=== PATIENT | male | born 1970 | race Caucasian/White ===

== ENCOUNTER → 2017-07-19 13:29 | Outpatient (CLI) | payer OTHER, SELFPAY ==
--- NOTE | 2017-07-19 18:43 | DI.MRI.S_ITS ---
PROCEDURE: MR BRAIN (IAC) WWO CON INDICATIONS: dizziness and h/a TECHNIQUE: Noncontrast sagittal T1 spin echo, axial FLAIR, axial gradient echo, axial diffusion and ADC through the brain. Axial thin-slice 3D CISS, coronal TruFISP, axial T1 spin echo with fat saturation through the internal auditory canals. After the administration of contrast, thin slice axial and coronal T1 spin echo with fat saturation through the internal auditory canals, and axial T1 spin echo with fat saturation through the brain. COMPARISON: None. FINDINGS: Image quality: Excellent. Cerebellopontine angles: No cerebellopontine angle masses. Inner ear structures appear normally formed. No suspicious enhancement in the internal auditory canal or along the course of the 7th cranial nerve. CSF spaces: Ventricles are normal in size and shape. No extra-axial fluid collections. Basal cisterns are patent. Brain: No intracranial bleeds or mass effects. Yanes-white matter interface is intact. No abnormal intracranial enhancement. Diffusion weighted images demonstrate no acute ischemic insults. Brainstem appears normal. Normal intravascular flow voids are present. Skull and face: Calvarial marrow signal is normal. Orbits appear normal. Sinuses: Sinuses and mastoids are clear except for a small degree of mucosal thickening involving the sphenoid sinus and the ethmoid air cells, right greater than left.. IMPRESSION: No sign of mass or hemorrhage, a definite source of headache is not seen. Note is made of a small degree of mucosal thickening involving the sphenoid sinus and ethmoid air cells, right slightly greater than left, but without associated air-fluid level. Mild chronic sinusitis is the presumed cause. Dictated by: Moy Mendieta M.D. on 07/20/2017 at 8:12 Approved by: Moy Mendieta M.D. on 07/20/2017 at 8:14
== END ==
PROVIDERS: Visit Provider Internal Medicine
DX: R42 Dizziness and giddiness (principal); R51 Headache
CPT/HCPCS: 70553; A9579

== ENCOUNTER 2018-12-21 10:10 | Emergency (ER) | payer OTHER, SELFPAY ==
[2018-12-21 10:15] VITALS: BP 144/91; PULSE 91; RESP 18; TEMP 36.6; O2SAT 97
--- NOTE | 2018-12-21 11:06 | ED.ABDPAIN ---
HPI - Abdominal Pain <MARIA TERESA Chaves - Last Filed: 12/21/18 13:27> General Chief Complaint: Abdominal Pain Stated Complaint: left mid abd pain/nausea x2 days Time Seen by Provider: 12/21/18 10:58 Source: patient Mode of arrival: Family Vehicle Limitations: no limitations History of Present Illness HPI narrative: 48-year-old male with a history of IBS, presents emergency department complaining of left lower abdominal pain for the past 2 days. He states he has had this for years and it developed after he eats spicy food, however the pain usually resolves after defecation. Patient states he ate spicy food 2 days ago, and developed the same left lower quadrant pain. He states it is a sharp stabbing 8/10 intermittent pain that is worse with movement and palpation. A noticed at this time it has not resolved after defecation. He reports a bout of diarrhea this morning with a small amount of associated nausea. He states nausea has resolved at this time, and his pain is decreasing. Patient denies fevers but does report chills this morning. He denies chest pain, shortness of breath, dizziness, and vomiting, dysuria, flank pain, history of kidney stones, history of diverticulosis. Patient states he had a colonoscopy 2 years ago and a few polyps were removed. Related Data Home Medications Medication Instructions Recorded Confirmed cetirizine 10 mg tablet 10 mg PO DAILY 08/22/17 12/21/18 Adult Low Dose Aspirin 81 mg PO DAILY 12/21/18 12/21/18 Previous Rx's Medication Instructions Recorded amoxicillin-pot clavulanate 1 tab PO BID 7 Days #14 tab 12/21/18 Allergies Allergy/AdvReac Type Severity Reaction Status Date / Time No Known Allergies Allergy Uncoded 12/21/18 10:38 Review of Systems <MARIA TERESA Chaves - Last Filed: 12/21/18 13:27> Review of Systems Narrative: REVIEW OF SYSTEMS: GENERAL: Denies fever, chills, malaise, or wt. loss. HENT: No head trauma, sore throat, or dysphagia. EYES: No loss of vision, double vision, eye pain, or irritation. CARDIOVASCULAR: No chest pain, palpitations, or orthopnea. RESPIRATORY: No shortness of breath or cough. GASTROINTESTINAL: Complains of left lower quadrant abdominal pain, see HPI GENITOURINARY: No flank pain, urinary incontinence, hesitancy, frequency, or dysuria. MUSCULOSKELETAL: No pain, weakness, or trauma. INTEGUMENTARY: No rash, lesions, or pruritus. NEURO: No numbness, tingling, memory loss, confusion, or headaches. PSYCH: No behavior or mood changes. Patient History <MARIA TERESA Chaves - Last Filed: 12/21/18 13:27> Medical History Ankle pain (Chronic 2017) Anxiety (Chronic 2009) Chicken pox (Resolved ~1969) Chronic back pain (Chronic 2016) Chronic headaches (Chronic 2014) Colon polyps (Resolved 2016) CTS (carpal tunnel syndrome) (Chronic 2016) Diverticular disease (Chronic) Foot pain (Chronic 2014) Fractures (Resolved 1992) GERD (gastroesophageal reflux disease) (Chronic 2016) Hearing loss (Chronic 2016) Hypertension (Chronic 2016) IBS (irritable bowel syndrome) (Chronic 2016) Kidney stones (Resolved) Shoulder pain (Chronic 2011) Sleep apnea (Chronic 2015) Tinnitus (Chronic 2016) Vertigo (Chronic 2016) Surgical History Anesthesia (Resolved) History of hand surgery (Resolved 1998) History of vasectomy (Resolved 1991) Status post adenoidectomy (Resolved 1978) Family History Brother Age: 50 Diabetes mellitus Hypertension Brother Age: 47 Diabetes mellitus Hypertension Father Age: 74 Diabetes mellitus Hypertension Organic cardiac disease High cholesterol Mother Diabetes mellitus Hypertension Sister Age: 51 Diabetes mellitus Hypertension Mental health problem Grandfather Cancer Grandmother Polio Grandfather No problems noted. Grandmother No problems noted. Social History Smoking Status: Never smoker alcohol intake frequency: a few times a week Substance Use Type: does not use Exam <MARIA TERESA Chaves - Last Filed: 12/21/18 13:27> Narrative Exam Narrative: PHYSICAL EXAMINATION: GENERAL: Well groomed, alert, and cooperative. Answers questions promptly and appropriately. Vital signs noted. HENT: Normocephalic, atraumatic. Hearing intact. Oral mucosa is pink and moist. EYES: Conjunctiva pink, sclera white, no periorbital swelling. CARDIOVASCULAR: S1 and S2 sounds normal. Regular rate and rhythm, no murmurs, clicks, or bruits. No pedal edema. RESPIRATORY: Normal respiratory rate, trachea midline, airway patent. No stridor, nasal flaring or accessory muscle use. Lungs are clear in all [place] without wheeze, rhonchi, or crackles. GASTROINTESTINAL: Bowel sounds normoactive. Left lower quadrant tenderness with palpation, no rebound tenderness.. No organomegaly, no palpable masses. GENITALURINARY: No CVA tenderness. MUSCULOSKELETAL: Normal gait and coordination. Equal tone and mass bilaterally. EXTREMITIES: CMS intact, no pedal edema. SKIN: Warm, dry, soft, appropriate color for ethnicity. No lesions, rashes, or wounds. NEURO: Alert and Oriented X 3. Good coordination. No ataxia, or sensory deficits, or cognitive issues. PSYCH: Appropriate affect and mood. Initial Vital Signs Initial Vital Signs: Vital Signs Temperature 97.9 F 12/21/18 10:15 Pulse Rate 91 H 12/21/18 10:15 Respiratory Rate 18 12/21/18 10:15 Blood Pressure 144/91 H 12/21/18 10:15 Pulse Oximetry 97 12/21/18 10:15 <Katherine Robertson DO - Last Filed: 12/21/18 16:01> Initial Vital Signs Initial Vital Signs: Vital Signs Temperature 97.9 F 12/21/18 10:15 Pulse Rate 91 H 12/21/18 10:15 Respiratory Rate 18 12/21/18 10:15 Blood Pressure 144/91 H 12/21/18 10:15 Pulse Oximetry 97 12/21/18 10:15 Course <MARIA TERESA Chaves - Last Filed: 12/21/18 13:27> Course Course Narrative: Patient denied need of pain or nausea medications. Orders Ordered: ED Orders 12/21/18 10:28 EKG-12 Lead Stat 12/21/18 10:58 Complete Blood Count AUTO DIFF Stat Comprehensive Metabolic Panel Stat Lipase Stat Partial Thromboplastin Time Stat Prothrombin Time INR Stat 12/21/18 11:49 CT abdomen pelvis w con Stat Consultations Consultation #1: Patient staffed with Dr. Robertson. Vital Signs Vital signs: Vital Signs - 8 hr 12/21/18 10:15 12/21/18 11:19 12/21/18 12:14 Temperature 97.9 F Pulse Rate 91 H 85 88 Respiratory Rate 18 20 20 Blood Pressure 144/91 H Blood Pressure [Right Arm] 133/84 Pulse Oximetry 97 96 96 12/21/18 12:17 Temperature 97.4 F L Pulse Rate 68 Respiratory Rate 12 Blood Pressure 133/84 Blood Pressure [Right Arm] Pulse Oximetry 99 <Katherine Robertson DO - Last Filed: 12/21/18 16:01> Orders Ordered: ED Orders 12/21/18 10:28 EKG-12 Lead Stat 12/21/18 10:58 Complete Blood Count AUTO DIFF Stat Comprehensive Metabolic Panel Stat Lipase Stat Partial Thromboplastin Time Stat Prothrombin Time INR Stat 12/21/18 11:49 CT abdomen pelvis w con Stat Vital Signs Vital signs: Vital Signs - 8 hr 12/21/18 10:15 12/21/18 11:19 12/21/18 12:14 Temperature 97.9 F Pulse Rate 91 H 85 88 Respiratory Rate 18 20 20 Blood Pressure 144/91 H Blood Pressure [Right Arm] 133/84 Pulse Oximetry 97 96 96 12/21/18 12:17 Temperature 97.4 F L Pulse Rate 68 Respiratory Rate 12 Blood Pressure 133/84 Blood Pressure [Right Arm] Pulse Oximetry 99 MDM - Abdominal Pain <MARIA TERESA Chaves - Last Filed: 12/21/18 13:27> Medical Records Attestation: I reviewed the patient's medical records. Lab Data Attestation: I reviewed the patient's lab results. Result diagrams: 12/21/18 10:58 12/21/18 10:58 Labs: Lab Results 12/21/18 12/21/18 12/21/18 Range/Units 10:58 10:58 10:58 WBC 10.4 (4.5-11.0) X10^3/uL RBC 4.81 (4.5-5.9) X10^6/uL Hgb 15.0 (13.5-17.5) g/dL Hct 42.2 (41-53) % MCV 87.6 (80-100) fL MCH 31.1 (26-34) PG MCHC 35.5 (30-36) % RDW 12.7 (11.6-14.8) % Plt Count 248 (150-400) X10^3/uL Neut % (Auto) 65.1 (50-75) % Lymph % (Auto) 21.5 L (25-40) % [place] % (Auto) 9.5 (3-14) % Eos % (Auto) 3.0 (2-4) % Baso % (Auto) 0.9 (0-2) % Neut # (Auto) 6800 (4440-8024) /uL Lymph # (Auto) 2200 (9910-2632) /uL [place] # (Auto) 1000 H (0-900) /uL Eos # (Auto) 300 (0-450) /uL Baso # (Auto) 100 (0-100) /uL PT 11.8 (10.1-12.7) SECONDS INR 1.0 (0.9-1.3) APTT 31 (26.4-36.2) SECONDS Sodium 138 (137-145) mmol/L Potassium 4.0 (3.4-5.1) mmol/L Chloride 102 (98-107) mmol/L Carbon Dioxide 26 (22-32) mmol/L BUN 11 (9-20) mg/dL Creatinine 0.90 (0.66-1.25) mg/dL Estimated GFR > 60.0 (>60) mL/min BUN/Creatinine Ratio 12.2 (6-22) Glucose 111 H (70-100) mg/dL Calcium 9.6 (8.4-10.2) mg/dL Total Bilirubin 1.1 (0.2-1.3) mg/dL AST 41 (17-59) IU/L ALT 33 (21-72) IU/L Alkaline Phosphatase 66 (38-126) U/L Total Protein 8.0 (6.3-8.2) g/dL Albumin 4.8 (3.5-5.0) g/dL Globulin 3.2 (1.7-4.1) g/dL Albumin/Globulin Ratio 1.5 (1.0-2.8) Lipase 81 (23-300) U/L Point of care testing: Urine Dip Bedside Urine Glucose Negative Bedside Urine Bilirubin - Negative Bedside Urine Ketone - Negative Urine Specific [place] 1.015 Bedside Urine Occult Blood - Negative Bedside Urine pH 6.0 Bedside Urine Protein - Negative Bedside Urine Urobilinogen +/- 1mg Bedside Urine Nitrite - Negative Bedside Urine Leukocytes - Negative Esterase Imaging Data CT scan - abdomen: Radiologist's impression: [address] [address] [address] Scan Report Signed Patient: Joaquín Holland JMR#: [id number] : 1970Acct:[id number] Age/Sex: 48 / MDate of Service: 12/21/18 Loc: ED Accession Number: [id number] Procedure: CT abdomen pelvis w con Ordering Provider: Shilpi Smith PROCEDURE: CT ABDOMEN PELVIS W CON INDICATIONS: left pain x 2 days, chills TECHNIQUE: After the administration of intravenous contrast, 5 mm thick sections acquired from the diaphragm to the symphysis. 5 mm coronal and sagittal reformats were acquired. For radiation dose reduction, the following was used: automated exposure control, adjustment of mA and/or kV according to patient size. COMPARISON: None. FINDINGS: Image quality: Excellent. ABDOMEN: Lung bases: Lung bases are clear. Heart size is normal. A small hiatal hernia is incidentally noted. Solid organs: Liver is normal in size and enhancement. Diffuse fatty liver infiltration is noted. Gallbladder is largely collapsed at the time of this study. Biliary system is non dilated. Pancreas enhances normally. Spleen is normal in size and enhancement. Incidental note is made of an accessory spleen along the anterior aspect of the primary spleen. No adrenal nodules. Kidneys demonstrate normal size and enhancement, without hydronephrosis. Peritoneum and bowel: There is focal wall thickening seen involving the distal descending colon, with surrounding moderate inflammatory change. There is thickening of the adjacent Gerota's fascia. Diverticula formation can be seen within this region. No findings of free air can be seen. No loculated fluid collections are seen to suggest abscess. Moderate diverticulosis is seen involving the sigmoid colon, without diverticulitis. Incidental note is made of a normal-appearing appendix. No other areas of bowel thickening are seen. Nodes and vessels: No retroperitoneal or mesenteric adenopathy by size criteria. Aorta and inferior vena cava are normal in size. Miscellaneous: No ventral hernias. PELVIS: Genitourinary: Bladder wall thickness is normal. Miscellaneous: No inguinal hernias or adenopathy. Bones: No suspicious bony lesions. No vertebral body compression fractures. Mild levoconvex scoliotic curvature is noted. Age-appropriate bony degenerative changes are seen. IMPRESSION: Focal diverticulitis seen involving the distal descending colon. No findings of perforation or abscess can be seen. When clinically appropriate (following adequate treatment of the patient's current clinical episode) a colonoscopy is recommended for further evaluation for a potential underlying mass (if not already recently done). Moderate diverticulosis is seen involving the sigmoid colon, without findings of active diverticulitis. Incidental note is made of: Small hiatal hernia Fatty liver infiltration Accessory spleen Normal appendix Dictated by: Anam Lin M.D. on 12/21/2018 at 10:53 Approved by: Anam Lin M.D. on 12/21/2018 at 10:57 MDM Narrative Medical decision making narrative: History and examination most suspicious for non complicated diverticulitis, this was confirmed by CT imaging confirming focal diverticulitis the distal descending colon. No concern for sepsis or intestinal perforation due to lack of suspicious changes on CT, WBC count within normal limits, and lack of systemic symptoms such as fever. Patient was given Augmentin. He was instructed to follow up with his primary care provider for re-evaluation. Had a conversation with patient about diet changes, he was instructed to avoid spicy foods at least for the next few weeks. Strict return precautions given for worsening symptoms. <Katherine Robertson, DO - Last Filed: 12/21/18 16:01> Lab Data Labs: Lab Results 12/21/18 12/21/18 12/21/18 Range/Units 10:58 10:58 10:58 WBC 10.4 (4.5-11.0) X10^3/uL RBC 4.81 (4.5-5.9) X10^6/uL Hgb 15.0 (13.5-17.5) g/dL Hct 42.2 (41-53) % MCV 87.6 (80-100) fL MCH 31.1 (26-34) PG MCHC 35.5 (30-36) % RDW 12.7 (11.6-14.8) % Plt Count 248 (150-400) X10^3/uL Neut % (Auto) 65.1 (50-75) % Lymph % (Auto) 21.5 L (25-40) % [place] % (Auto) 9.5 (3-14) % Eos % (Auto) 3.0 (2-4) % Baso % (Auto) 0.9 (0-2) % Neut # (Auto) 6800 (7946-5592) /uL Lymph # (Auto) 2200 (3721-8619) /uL [place] # (Auto) 1000 H (0-900) /uL Eos # (Auto) 300 (0-450) /uL Baso # (Auto) 100 (0-100) /uL PT 11.8 (10.1-12.7) SECONDS INR 1.0 (0.9-1.3) APTT 31 (26.4-36.2) SECONDS Sodium 138 (137-145) mmol/L Potassium 4.0 (3.4-5.1) mmol/L Chloride 102 (98-107) mmol/L Carbon Dioxide 26 (22-32) mmol/L BUN 11 (9-20) mg/dL Creatinine 0.90 (0.66-1.25) mg/dL Estimated GFR > 60.0 (>60) mL/min BUN/Creatinine Ratio 12.2 (6-22) Glucose 111 H (70-100) mg/dL Calcium 9.6 (8.4-10.2) mg/dL Total Bilirubin 1.1 (0.2-1.3) mg/dL AST 41 (17-59) IU/L ALT 33 (21-72) IU/L Alkaline Phosphatase 66 (38-126) U/L Total Protein 8.0 (6.3-8.2) g/dL Albumin 4.8 (3.5-5.0) g/dL Globulin 3.2 (1.7-4.1) g/dL Albumin/Globulin Ratio 1.5 (1.0-2.8) Lipase 81 (23-300) U/L Point of care testing: Urine Dip Bedside Urine Glucose Negative Bedside Urine Bilirubin - Negative Bedside Urine Ketone - Negative Urine Specific [place] 1.015 Bedside Urine Occult Blood - Negative Bedside Urine pH 6.0 Bedside Urine Protein - Negative Bedside Urine Urobilinogen +/- 1mg Bedside Urine Nitrite - Negative Bedside Urine Leukocytes - Negative Esterase Discharge Plan Departure Patient Disposition: Home Clinical Impression: Diverticulitis Discharge Date/Time: 12/21/18 12:24 Instructions: DI for Diverticulitis Activity Restrictions/Additional Instructions: Thank you for entrusting me with your care today. As discussed, your CT findings indicate that you have diverticulitis, which is an infection in your intestine. Please take antibiotics as directed. Follow up with your primary care provider in the next week for re-evaluation. Return to the emergency department if you develop new or worsening symptoms such as fevers, severe abdominal pain, uncontrollable vomiting, chest pain, syncope, or etc. Prescriptions: New amoxicillin-pot clavulanate 875-125 mg tablet 1 tab PO BID 7 Days Qty: 14 RF: 0 No Action cetirizine [Zyrtec] 10 mg tablet 10 mg PO DAILY RF: 0 Adult Low Dose Aspirin 81 mg 81 mg PO DAILY RF: 0 Referrals: Melanie Hayes ARNP [Primary Care Provider] -
[2018-12-21 11:07] LABS: Add Manual Diff / Slide Review NO; Basophils Absolute Auto 100 /uL (0-100); Basophils Percent Auto 0.9 % (0-2); Eosinophils Absolute Auto 300 /uL (0-450); Hematocrit 42.2 % (41-53); Lymphocytes Absolute Auto 2200 /uL (1100-4500); Lymphocytes Percent Auto 21.5 % (25-40); Mean Corpuscular HGB Conc 35.5 % (30-36); Mean Corpuscular Hemoglobin 31.1 PG (26-34); Mean Corpuscular Volume 87.6 fL (80-100); Monocytes Absolute Auto 1000 /uL (0-900); Monocytes Percent Auto 9.5 % (3-14); Neutrophils Absolute Auto 6800 /uL (1500-7000); Neutrophils Percent Auto 65.1 % (50-75); Platelet Count 248 X10^3/uL (150-400); Red Blood Cell Count 4.81 X10^6/uL (4.5-5.9); Red Cell Distribution Width 12.7 % (11.6-14.8); White Blood Cell Count 10.4 X10^3/uL (4.5-11.0)
[2018-12-21 11:13] LABS: Prothrombin Time 11.8 SECONDS (10.1-12.7)
[2018-12-21 11:16] LABS: PTT Partial Thromboplastin Tim 31 SECONDS (26.4-36.2)
[2018-12-21 11:19] VITALS: PULSE 85; RESP 20; O2SAT 96
[2018-12-21 11:21] LABS: Alanine Aminotransferase 33 IU/L (21-72); Albumin 4.8 g/dL (3.5-5.0); Albumin Globulin Ratio 1.5 (1.0-2.8); Alkaline Phosphatase 66 U/L (38-126); Aspartate Aminotransferase 41 IU/L (17-59); BUN Creatinine Ratio 12.2 (6-22); Bilirubin Total 1.1 mg/dL (0.2-1.3); Blood Urea Nitrogen 11 mg/dL (9-20); Calcium 9.6 mg/dL (8.4-10.2); Carbon Dioxide 26 mmol/L (22-32); Chloride 102 mmol/L (98-107); Estimated Glomerular Filt Rate > 60.0 mL/min (>60); Globulin 3.2 g/dL (1.7-4.1); Glucose 111 mg/dL (70-100); HEMOLYSIS < 15 (0-50); Lipase 81 U/L (23-300); Sodium 138 mmol/L (137-145)
--- NOTE | 2018-12-21 11:49 | DI.CT.S_ITS ---
PROCEDURE: CT ABDOMEN PELVIS W CON INDICATIONS: left pain x 2 days, chills TECHNIQUE: After the administration of intravenous contrast, 5 mm thick sections acquired from the diaphragm to the symphysis. 5 mm coronal and sagittal reformats were acquired. For radiation dose reduction, the following was used: automated exposure control, adjustment of mA and/or kV according to patient size. COMPARISON: None. FINDINGS: Image quality: Excellent. ABDOMEN: Lung bases: Lung bases are clear. Heart size is normal. A small hiatal hernia is incidentally noted. Solid organs: Liver is normal in size and enhancement. Diffuse fatty liver infiltration is noted. Gallbladder is largely collapsed at the time of this study. Biliary system is non dilated. Pancreas enhances normally. Spleen is normal in size and enhancement. Incidental note is made of an accessory spleen along the anterior aspect of the primary spleen. No adrenal nodules. Kidneys demonstrate normal size and enhancement, without hydronephrosis. Peritoneum and bowel: There is focal wall thickening seen involving the distal descending colon, with surrounding moderate inflammatory change. There is thickening of the adjacent Gerota's fascia. Diverticula formation can be seen within this region. No findings of free air can be seen. No loculated fluid collections are seen to suggest abscess. Moderate diverticulosis is seen involving the sigmoid colon, without diverticulitis. Incidental note is made of a normal-appearing appendix. No other areas of bowel thickening are seen. Nodes and vessels: No retroperitoneal or mesenteric adenopathy by size criteria. Aorta and inferior vena cava are normal in size. Miscellaneous: No ventral hernias. PELVIS: Genitourinary: Bladder wall thickness is normal. Miscellaneous: No inguinal hernias or adenopathy. Bones: No suspicious bony lesions. No vertebral body compression fractures. Mild levoconvex scoliotic curvature is noted. Age-appropriate bony degenerative changes are seen. IMPRESSION: Focal diverticulitis seen involving the distal descending colon. No findings of perforation or abscess can be seen. When clinically appropriate (following adequate treatment of the patient's current clinical episode) a colonoscopy is recommended for further evaluation for a potential underlying mass (if not already recently done). Moderate diverticulosis is seen involving the sigmoid colon, without findings of active diverticulitis. Incidental note is made of: Small hiatal hernia Fatty liver infiltration Accessory spleen Normal appendix Dictated by: Anam Lin M.D. on 12/21/2018 at 10:53 Approved by: Anam Lin M.D. on 12/21/2018 at 10:57
[2018-12-21 12:14] VITALS: BP 133/84; PULSE 88; RESP 20; O2SAT 96
[2018-12-21 12:17] VITALS: BP 133/84; PULSE 68; RESP 12; TEMP 36.3; O2SAT 99
== END 2018-12-21 12:24 | disposition home or self-care (01) ==
PROVIDERS: Emergency Medicine; Emergency Provider Nurse Practitioner; PCP Internal Medicine
DX: K57.92 Diverticulitis of intestine, part unspecified, without perforation or abscess without bleeding (principal); R10.32 Left lower quadrant pain; R11.0 Nausea
CPT/HCPCS: 36415; 74177; 80053; 81003; 83690; 85025; 85610; 85730; 93005; 99283; 99284; 99285; Q9967

== ENCOUNTER 2019-05-15 12:17 | Emergency (ER) | payer OTHER, SELFPAY ==
[2019-05-15 12:22] VITALS: BP 160/98; PULSE 96; RESP 14; TEMP 36.6; O2SAT 96; BMI 32.5
--- NOTE | 2019-05-15 12:45 | ED_ITS ---
HPI - Abdominal Pain <JONI Carrion - Last Filed: 05/15/19 17:23> General Chief Complaint: Urogenital-Male Stated Complaint: lower abdominal pain,hurts when pee Time Seen by Provider: 05/15/19 12:20 Source: patient Mode of arrival: Ambulatory Limitations: no limitations History of Present Illness HPI narrative: The patient is a 48-year-old male nonsmoker with history of diverticulitis who presents with a chief complaint of lower abdominal pain that was 8/10 last night with associated subjective fever and chills. He states he was nauseous, and then had 1 episode of painful urination. He states it radiated from his lower abdomen down to the tip of his penis. He had a normal bowel movement this morning. He is concerned about diverticulitis as he states that this presented very similarly 6 months ago. He denies any sexually transmitted infection risks. He has not taken anything at home to feel better. He states he does have a history of kidney pain related to energy drink use, any states he has been increasing his energy drinks over the past few weeks. He does not want to be tested for sexually transmitted infections Related Data Home Medications Medication Instructions Recorded Confirmed cetirizine 10 mg tablet 10 mg PO DAILY 08/22/17 12/21/18 Adult Low Dose Aspirin 81 mg PO DAILY 12/21/18 12/21/18 Previous Rx's Medication Instructions Recorded amoxicillin-pot clavulanate 1 tab PO BID #20 tab 05/15/19 hydrocodone-acetaminophen [[place]] 1 tab PO Q4-6H PRN #7 tab 05/15/19 ondansetron 4 mg PO Q6H PRN #20 tab 05/15/19 Allergies Allergy/AdvReac Type Severity Reaction Status Date / Time No Known Drug Allergies Allergy Verified 05/15/19 12:29 Review of Systems <JONI Carrion - Last Filed: 05/15/19 17:23> Review of Systems Narrative: GENERAL: Denies chills, fatigue, malaise, fever, sweats. HEENT: Denies sinus pain, ear pain, sore throat, difficulty swallowing, dizziness. RESPIRATORY: Denies dyspnea, cough, wheezing, hemoptysis, sputum. CARDIOVASCULAR: Denies chest pain, palpitations, orthopnea, edema, GASTROINTESTINAL: See HPI : See HPI MUSCULOSKELETAL: denies weakness, joint pain, or bony pain SKIN: Denies rash, skin lesions, or other NEUROLOGIC: Denies weakness, headache, numbness, change in speech, confusion, seizures, incoordination. PSYCHIATRIC: No concerning psychosocial issues. 12 point review of systems is negative except for those stated above Patient History <Katherine JONI Gonsalez - Last Filed: 05/15/19 17:23> Social History Smoking Status: Never smoker Smoking Status: Never smoker alcohol intake frequency: 0-2 drinks per day Substance Use Type: does not use Exam <Katherine NunoJONI tam - Last Filed: 05/15/19 17:23> Narrative Exam Narrative: GENERAL: This is a well-nourished, well-developed patient, in no acute distress HEAD: Atraumatic. Normocephalic. No temporal or scalp tenderness. EYES: Pupils equal round and reactive. Extraocular motions intact. No scleral icterus. No injection or drainage. ENT: Nose without bleeding, purulent drainage or septal hematoma. Throat without erythema, tonsillar hypertrophy or exudate. Uvula midline. Airway patent. NECK: Trachea midline. No JVD or lymphadenopathy. Supple, nontender, no meningeal signs. CARDIOVASCULAR: Regular rate and rhythm RESPIRATORY: Clear to auscultation. Breath sounds equal bilaterally. No wheezes, rales, or rhonchi. No cough. No increased respiratory effort. No accessory muscle use. GASTROINTESTINAL: Abdomen soft, tenderness to left lower quadrant palpation, nondistended. No hepato-splenomegaly, or palpable masses. No guarding. Active bowel sounds all 4 quadrants EXTREMITIES: No clubbing, cyanosis, or edema. No joint tenderness, effusion, or edema noted. BACK: Nontender without deformity or crepitance. No flank tenderness. NEURO: AOx3. SKIN: No rash or erythema on visible skin Initial Vital Signs Initial Vital Signs: Vital Signs Temperature 97.9 F 05/15/19 12:22 Pulse Rate 96 H 05/15/19 12:22 Respiratory Rate 14 05/15/19 12:22 Blood Pressure 160/98 H 05/15/19 12:22 Pulse Oximetry 96 05/15/19 12:22 <Jake Rodriguez DO - Last Filed: 05/15/19 17:37> Initial Vital Signs Initial Vital Signs: Vital Signs Temperature 97.9 F 05/15/19 12:22 Pulse Rate 96 H 05/15/19 12:22 Respiratory Rate 14 05/15/19 12:22 Blood Pressure 160/98 H 05/15/19 12:22 Pulse Oximetry 96 05/15/19 12:22 Scores <Katherine JONI Gonsalez - Last Filed: 05/15/19 17:23> [employer] coma scale eye opening: Spontaneous [employer] coma scale verbal response: Orientated [employer] coma scale motor response: Obey commands Kimberly coma scale total score: 15 Course <JONI Carrion - Last Filed: 05/15/19 17:23> Orders Ordered: ED Orders 05/15/19 12:50 Amylase Stat Complete Blood Count AUTO DIFF Stat Comprehensive Metabolic Panel Stat Lipase Stat 05/15/19 13:29 CT abdomen pelvis w con Stat Discontinued Medications Sodium Chloride (Normal Saline 0.9%) 1,000 mls @ 1,000 mls/hr IV BOLUS ONE Stop: 05/15/19 13:27 Last Infusion: 05/15/19 14:54 Dose: 0 mls/hr Documented by: Admin: 05/15/19 12:56 Dose: 1,000 mls/hr Documented by: FE Vital Signs Vital signs: Vital Signs - 8 hr 05/15/19 12:22 05/15/19 13:39 05/15/19 14:30 Temperature 97.9 F 98.7 F Pulse Rate 96 H 89 87 Respiratory Rate 14 12 14 Blood Pressure 160/98 H Blood Pressure [Right Arm] 142/85 H 136/87 Pulse Oximetry 96 97 98 05/15/19 15:00 Temperature 98.4 F Pulse Rate 78 Respiratory Rate 16 Blood Pressure Blood Pressure [Right Arm] 136/87 Pulse Oximetry 98 <DO Jose E Li Last Filed: 05/15/19 17:37> Orders Ordered: ED Orders 05/15/19 12:50 Amylase Stat Complete Blood Count AUTO DIFF Stat Comprehensive Metabolic Panel Stat Lipase Stat 05/15/19 13:29 CT abdomen pelvis w con Stat Discontinued Medications Sodium Chloride (Normal Saline 0.9%) 1,000 mls @ 1,000 mls/hr IV BOLUS ONE Stop: 05/15/19 13:27 Last Infusion: 05/15/19 14:54 Dose: 0 mls/hr Documented by: Admin: 05/15/19 12:56 Dose: 1,000 mls/hr Documented by: FE Vital Signs Vital signs: Vital Signs - 8 hr 05/15/19 12:22 05/15/19 13:39 05/15/19 14:30 Temperature 97.9 F 98.7 F Pulse Rate 96 H 89 87 Respiratory Rate 14 12 14 Blood Pressure 160/98 H Blood Pressure [Right Arm] 142/85 H 136/87 Pulse Oximetry 96 97 98 05/15/19 15:00 Temperature 98.4 F Pulse Rate 78 Respiratory Rate 16 Blood Pressure Blood Pressure [Right Arm] 136/87 Pulse Oximetry 98 MDM - Abdominal Pain <VIRAJ Carrion - Last Filed: 05/15/19 17:23> Lab Data Result diagrams: 05/15/19 12:50 05/15/19 12:50 Labs: Lab Results 05/15/19 05/15/19 Range/Units 12:50 12:50 WBC 10.2 (4.5-11.0) X10^3/uL RBC 4.83 (4.5-5.9) X10^6/uL Hgb 14.8 (13.5-17.5) g/dL Hct 42.1 (41-53) % MCV 87.1 (80-100) fL MCH 30.6 (26-34) PG MCHC 35.2 (30-36) % RDW 12.7 (11.6-14.8) % Plt Count 259 (150-400) X10^3/uL Neut % (Auto) 61.6 (50-75) % Lymph % (Auto) 25.3 (25-40) % [place] % (Auto) 9.9 (3-14) % Eos % (Auto) 2.4 (2-4) % Baso % (Auto) 0.8 (0-2) % Neut # (Auto) 6300 (9085-4672) /uL Lymph # (Auto) 2600 (5871-6689) /uL [place] # (Auto) 1000 H (0-900) /uL Eos # (Auto) 200 (0-450) /uL Baso # (Auto) 100 (0-100) /uL Sodium 137 (137-145) mmol/L Potassium 4.5 (3.4-5.1) mmol/L Chloride 104 (98-107) mmol/L Carbon Dioxide 25 (22-32) mmol/L BUN 13 (9-20) mg/dL Creatinine 0.99 (0.66-1.25) mg/dL Estimated GFR > 60.0 (>60) mL/min BUN/Creatinine Ratio 13.1 (6-22) Glucose 112 H (70-100) mg/dL Calcium 9.2 (8.4-10.2) mg/dL Total Bilirubin 1.0 (0.2-1.3) mg/dL AST 69 H (17-59) IU/L ALT 40 (<50) IU/L Alkaline Phosphatase 59 (38-126) U/L Total Protein 8.2 (6.3-8.2) g/dL Albumin 4.6 (3.5-5.0) g/dL Globulin 3.6 (1.7-4.1) g/dL Albumin/Globulin Ratio 1.3 (1.0-2.8) Amylase 64 (30-110) U/L Lipase 74 (23-300) U/L Point of care testing: Urine Dip Bedside Urine Glucose Negative Bedside Urine Bilirubin - Negative Bedside Urine Ketone +/- 5 Urine Specific [place] 1.030 Bedside Urine Occult Blood - Negative Bedside Urine pH 6.0 Bedside Urine Protein +/- 15 Bedside Urine Urobilinogen +/- 1mg Bedside Urine Nitrite - Negative Bedside Urine Leukocytes - Negative Esterase Imaging Data CT scan - abdomen/pelvis: Radiologist's Impression: [address] [place] [id number] Scan Report Signed Patient: Joaquín Holland JMR#: [id number] : 1970Acct:[id number] Age/Sex: 48 / MDate of Service: 05/15/19 Loc: ED Accession Number: [id number] Procedure: CT abdomen pelvis w con Ordering Provider: Katherine Gonsalez- PROCEDURE: CT ABDOMEN PELVIS W CON INDICATIONS: left lower quad pain, chills TECHNIQUE: After the administration of intravenous contrast, 5 mm thick sections acquired from the diaphragm to the symphysis. 5 mm coronal and sagittal reformats were acquired. For radiation dose reduction, the following was used: automated exposure control, adjustment of mA and/or kV according to patient size. COMPARISON: [facility], CT, CT ABDOMEN PELVIS W CON, 12/21/2018, 11:29. FINDINGS: Image quality: Excellent. ABDOMEN: Lung bases: Lung bases are clear. Heart size is normal. Solid organs: Hepatic fatty infiltration. Liver is normal in size and enhanceme nt. Gallbladder is normal . Biliary system is non dilated. Pancreas enhances normally. Spleen is normal in size and enhancement. No adrenal nodules. Kidneys demonstrate normal size and enhancement, without hydronephrosis. Peritoneum and bowel: Bowel loops demonstrate normal caliber. There are multiple colonic diverticula. There is sigmoid colon thickening and stranding around sigmoid colon consistent with acute diverticulitis. A small amount of free fluid is present. No free air. Nodes and vessels: No retroperitoneal or mesenteric adenopathy by size criteria. Aorta and inferior vena cava are normal in size. Miscellaneous: No ventral hernias. PELVIS: Genitourinary: Bladder wall thickness is normal. Miscellaneous: No inguinal hernias or adenopathy. Bones: No suspicious bony lesions. No vertebral body compression fractures. IMPRESSION: Acute sigmoid diverticulitis. There is a small amount of free fluid. No findins to suggest diverticular perfuration or abscess. Dictated by: Diana Bojorquez M.D. on 05/15/2019 at 14:34 Approved by: Diana Bojorquez M.D. on 05/15/2019 at 14:43 MDM Narrative Medical decision making narrative: The patient is a 48-year-old male who presents with a chief complaint of a single episode of dysuria as well as left lower quadrant pain. He had is afebrile in the emergency department, has no leukocytosis does complain of chills yesterday. His urine has no signs of infection, I do not know exactly what caused his single episode of dysuria last night. I wonder if it has something to do with drinking several energy drinks per day. However his CT is indicating diverticulitis. The patient does not want to take fluoroquinolones so he was placed on Augmentin. I gave him prescriptions of pain medication, nausea medication as well as Augmentin. He did not want to try 1st dose in the emergency department. I discussed at length the importance of following up with primary care provider, coming back to the emergency department for any acute concerns such as inability keep down fluids. Patient has no questions or concerns upon discharge and states understanding return precautions as well as follow-up care. He has appeared nontoxic and in no acute distress throughout his stay in the emergency department. <Jake Rodriguez DO - Last Filed: 05/15/19 17:37> Lab Data Labs: Lab Results 05/15/19 05/15/19 Range/Units 12:50 12:50 WBC 10.2 (4.5-11.0) X10^3/uL RBC 4.83 (4.5-5.9) X10^6/uL Hgb 14.8 (13.5-17.5) g/dL Hct 42.1 (41-53) % MCV 87.1 (80-100) fL MCH 30.6 (26-34) PG MCHC 35.2 (30-36) % RDW 12.7 (11.6-14.8) % Plt Count 259 (150-400) X10^3/uL Neut % (Auto) 61.6 (50-75) % Lymph % (Auto) 25.3 (25-40) % [place] % (Auto) 9.9 (3-14) % Eos % (Auto) 2.4 (2-4) % Baso % (Auto) 0.8 (0-2) % Neut # (Auto) 6300 (1003-8494) /uL Lymph # (Auto) 2600 (1308-9550) /uL [place] # (Auto) 1000 H (0-900) /uL Eos # (Auto) 200 (0-450) /uL Baso # (Auto) 100 (0-100) /uL Sodium 137 (137-145) mmol/L Potassium 4.5 (3.4-5.1) mmol/L Chloride 104 (98-107) mmol/L Carbon Dioxide 25 (22-32) mmol/L BUN 13 (9-20) mg/dL Creatinine 0.99 (0.66-1.25) mg/dL Estimated GFR > 60.0 (>60) mL/min BUN/Creatinine Ratio 13.1 (6-22) Glucose 112 H (70-100) mg/dL Calcium 9.2 (8.4-10.2) mg/dL Total Bilirubin 1.0 (0.2-1.3) mg/dL AST 69 H (17-59) IU/L ALT 40 (<50) IU/L Alkaline Phosphatase 59 (38-126) U/L Total Protein 8.2 (6.3-8.2) g/dL Albumin 4.6 (3.5-5.0) g/dL Globulin 3.6 (1.7-4.1) g/dL Albumin/Globulin Ratio 1.3 (1.0-2.8) Amylase 64 (30-110) U/L Lipase 74 (23-300) U/L Point of care testing: Urine Dip Bedside Urine Glucose Negative Bedside Urine Bilirubin - Negative Bedside Urine Ketone +/- 5 Urine Specific [place] 1.030 Bedside Urine Occult Blood - Negative Bedside Urine pH 6.0 Bedside Urine Protein +/- 15 Bedside Urine Urobilinogen +/- 1mg Bedside Urine Nitrite - Negative Bedside Urine Leukocytes - Negative Esterase Discharge Plan Departure Patient Disposition: Home Clinical Impression: Diverticulitis, Dysuria Discharge Date/Time: 05/15/19 15:26 Instructions: DI for Diverticulitis, DI for Dysuria -- Adult Activity Restrictions/Additional Instructions: Thank you for trusting us with your care today. Your CT scan showed diverticulitis. As discussed, please slowly advanced your diet as tolerated. I sent 3 prescriptions [facility]. One is for pain, 1 is for nausea and 1 is the antibiotic. Please take the entire course of antibiotic. Please follow-up with primary care provider in the next few days. Please monitor for high fevers, inability keep down fluids or signs of sign ificant worsening. Please come back to emergency department for any acute concerns. I have given you a prescription of a narcotic for pain. Be aware that this can be constipating and sedating. I encouraged taking with a stool softener, pushing fluids and fiber. Do not take and drive, operate heavy machinery, etc. Do not combine it with any other sedating substances such as alcohol. The combination of narcotics and alcohol and/or other sedatives can be lethal. Please be aware that we do not provide refills of controlled substances in the emergency department. Please follow up with her primary care provider. I am not sure what caused the episode of painful urination earlier today. Your urine shows no sign of infectio and your CT scan showed no evidence of kidney stones. I suggest that you stop drinking multiple energy drinks per day. Prescriptions: New amoxicillin-pot clavulanate 325125 mg tablet 1 tab PO BID Qty: 20 RF: 0 ondansetron 4 mg tablet,disintegrating 4 mg PO Q6H PRN (Reason: nausea and vomiting) Qty: 20 RF: 0 hydrocodone-acetaminophen [[place]] 5-325 mg tablet 1 tab PO Q4-6H PRN (Reason: pain) Qty: 7 RF: 0 No Action cetirizine [Zyrtec] 10 mg tablet 10 mg PO DAILY RF: 0 Adult Low Dose Aspirin 81 mg 81 mg PO DAILY RF: 0 Referrals: Melanie Hayes ARNP [Primary Care Provider] - ED Sign-out <JONI Carrion - Last Filed: 05/15/19 17:23> [facility] ED Attending Xiomara Attestation: I was immediately available in the department for consultation. This documentation has been reviewed and I agree with assessment and plan. Supervised by JONI Carrion <Jake Rodriguez DO - Last Filed: 05/15/19 17:37> [facility] ED Attending Xiomara Attestation: Dr Rodriguez Co-Sign Statement: I was available for consultation during this patient's emergency department visit. This chart is signed by myself for administrative purposes only. I did not have direct contact with this patient during this visit. They were seen independently by the [facility].
[2019-05-15] MEDS: SODIUM CHLORIDE 0.9% 1,000 ML 1000 ML IV (12:56)
[2019-05-15 13:01] LABS: Add Manual Diff / Slide Review NO; Basophils Absolute Auto 100 /uL (0-100); Basophils Percent Auto 0.8 % (0-2); Eosinophils Absolute Auto 200 /uL (0-450); Eosinophils Percent Auto 2.4 % (2-4); Hematocrit 42.1 % (41-53); Hemoglobin 14.8 g/dL (13.5-17.5); Lymphocytes Absolute Auto 2600 /uL (1100-4500); Lymphocytes Percent Auto 25.3 % (25-40); Mean Corpuscular HGB Conc 35.2 % (30-36); Mean Corpuscular Hemoglobin 30.6 PG (26-34); Mean Corpuscular Volume 87.1 fL (80-100); Monocytes Absolute Auto 1000 /uL (0-900); Monocytes Percent Auto 9.9 % (3-14); Neutrophils Absolute Auto 6300 /uL (1500-7000); Neutrophils Percent Auto 61.6 % (50-75); Platelet Count 259 X10^3/uL (150-400); Red Blood Cell Count 4.83 X10^6/uL (4.5-5.9); Red Cell Distribution Width 12.7 % (11.6-14.8); White Blood Cell Count 10.2 X10^3/uL (4.5-11.0)
--- NOTE | 2019-05-15 13:08 | PC.NURSE ---
Patient states that he drank a lot of water yesterday and that his urine was really clear. Today, after having coffee, he noticed his urine to be discolored, somewhat of an orange color, which never happens when I drink coffee, according to patient. Patient states some discomfort with urination but states he has no discomfort currently. Mild left lower abdominal discomfort per patient. Abdomen soft and non-distended. Denies nausea but states he had chills yesterday but did not check an actual temperature. No chills at this time. Blood sent to lab, call light in place, warm blanket offered but declined. No needs voiced at this time. Awaiting all urine and lab results.
[2019-05-15 13:15] LABS: Alanine Aminotransferase 40 IU/L (<50); Albumin 4.6 g/dL (3.5-5.0); Albumin Globulin Ratio 1.3 (1.0-2.8); Alkaline Phosphatase 59 U/L (38-126); Amylase 64 U/L (30-110); Aspartate Aminotransferase 69 IU/L (17-59); BUN Creatinine Ratio 13.1 (6-22); Blood Urea Nitrogen 13 mg/dL (9-20); Calcium 9.2 mg/dL (8.4-10.2); Carbon Dioxide 25 mmol/L (22-32); Chloride 104 mmol/L (98-107); Estimated Glomerular Filt Rate > 60.0 mL/min (>60); Globulin 3.6 g/dL (1.7-4.1); Glucose 112 mg/dL (70-100); Lipase 74 U/L (23-300); Potassium 4.5 mmol/L (3.4-5.1); Sodium 137 mmol/L (137-145); Total Protein 8.2 g/dL (6.3-8.2)
[2019-05-15 13:16] LABS: HEMOLYSIS 80 (0-50)
--- NOTE | 2019-05-15 13:29 | DI.CT.S_ITS ---
PROCEDURE: CT ABDOMEN PELVIS W CON INDICATIONS: left lower quad pain, chills TECHNIQUE: After the administration of intravenous contrast, 5 mm thick sections acquired from the diaphragm to the symphysis. 5 mm coronal and sagittal reformats were acquired. For radiation dose reduction, the following was used: automated exposure control, adjustment of mA and/or kV according to patient size. COMPARISON: [facility], CT, CT ABDOMEN PELVIS W CON, 12/21/2018, 11:29. FINDINGS: Image quality: Excellent. ABDOMEN: Lung bases: Lung bases are clear. Heart size is normal. Solid organs: Hepatic fatty infiltration. Liver is normal in size and enhancement. Gallbladder is normal . Biliary system is non dilated. Pancreas enhances normally. Spleen is normal in size and enhancement. No adrenal nodules. Kidneys demonstrate normal size and enhancement, without hydronephrosis. Peritoneum and bowel: Bowel loops demonstrate normal caliber. There are multiple colonic diverticula. There is sigmoid colon thickening and stranding around sigmoid colon consistent with acute diverticulitis. A small amount of free fluid is present. No free air. Nodes and vessels: No retroperitoneal or mesenteric adenopathy by size criteria. Aorta and inferior vena cava are normal in size. Miscellaneous: No ventral hernias. PELVIS: Genitourinary: Bladder wall thickness is normal. Miscellaneous: No inguinal hernias or adenopathy. Bones: No suspicious bony lesions. No vertebral body compression fractures. IMPRESSION: Acute sigmoid diverticulitis. There is a small amount of free fluid. No findins to suggest diverticular perfuration or abscess. Dictated by: Diana Bojorquez M.D. on 05/15/2019 at 14:34 Approved by: Diana Bojorquez M.D. on 05/15/2019 at 14:43
[2019-05-15 13:39] VITALS: BP 142/85; PULSE 89; RESP 12; TEMP 37.1; O2SAT 97
--- NOTE | 2019-05-15 13:39 | PC.NURSE ---
Patient resting quietly in stretcher. Denies any pain at this time. IV fluids infusing without difficulty. Pending CT scan ordered.
[2019-05-15 14:30] VITALS: BP 136/87; PULSE 87; RESP 14; O2SAT 98
[2019-05-15 15:00] VITALS: BP 136/87; PULSE 78; RESP 16; TEMP 36.9; O2SAT 98
== END 2019-05-15 15:26 | disposition home or self-care (01) ==
PROVIDERS: Emergency Provider Nurse Practitioner Family; PCP Internal Medicine
DX: K57.92 Diverticulitis of intestine, part unspecified, without perforation or abscess without bleeding (principal); R30.0 Dysuria; R50.9 Fever, unspecified
CPT/HCPCS: 36415; 74177; 80053; 81003; 82150; 83690; 85025; 96360; 96361; 99284; Q9967

== ENCOUNTER 2020-05-31 02:47 | Emergency (ER) | payer OTHER, SELFPAY ==
[2020-05-31 02:54] VITALS: BP 142/93; PULSE 85; RESP 18; TEMP 36.6; O2SAT 98; BMI 31.7
--- NOTE | 2020-05-31 02:56 | DI.CT.S_ITS ---
PROCEDURE: CT KIDNEY URETER BLADDER (KUB) INDICATIONS: Severe right flank and suprapubic pain TECHNIQUE: Noncontrast 5 mm thick sections acquired from the diaphragms to the symphysis. 5 mm thick coronal and sagittal reformats were then performed. For radiation dose reduction, the following was used: automated exposure control, adjustment of mA and/or kV according to patient size. COMPARISON: [facility], CT, CT ABDOMEN PELVIS W CON, 12/21/2018, 11:29. [facility], CT, CT ABDOMEN PELVIS W CON, 05/15/2019, 13:53. FINDINGS: Image quality: Excellent. Lung bases: Bibasilar atelectasis. Mild ground-glass infiltrate may be present in the right lower lobe. Heart size is normal. Urinary system: Both kidneys are normal in size. No kidney stones. No hydronephrosis or perinephric fat stranding. Both ureters appear non-dilated throughout their expected courses. Bladder wall thickness is normal; no calcified bladder stones. Other solid organs: Liver is normal in size. Gallbladder is contracted. Pancreas is normal in contours. Spleen is normal in size. No adrenal nodules. Peritoneum and bowel: There are numerous colonic diverticula. There is pericolonic stranding around sigmoid colon consistent with acute diverticulitis. There is a small amount of fluid in the left pericolic gutter. No findings to suggest diverticular perforation or abscess. Normal appendix. Unenhanced bowel loops demonstrate normal caliber. Nodes and vessels: No retroperitoneal or mesenteric adenopathy by size criteria. Aorta and inferior vena cava are normal in caliber. Abdominal wall: No ventral hernias. Pelvis: No free pelvic fluid. No inguinal hernias or adenopathy. Bones: No suspicious bony lesions. No vertebral body compression fractures. IMPRESSION: 1. No renal stone or hydronephrosis. 2. Mild acute sigmoid diverticulitis. No diverticular perforation or abscess. 3. Normal appendix. 4. Bibasilar atelectasis. Possible mild ground-glass infiltrate in the right lower lobe. No significant discrepancy with the weight shifter radiology preliminary report. Dictated by: Diana Bojorquez M.D. on 05/31/2020 at 8:47 Approved by: Diana Bojorquez M.D. on 05/31/2020 at 8:55
--- NOTE | 2020-05-31 02:58 | ED.MALEGU ---
HPI - Male Genitourinary General Chief complaint: Urogenital-Male Stated complaint: thinks kidney stone, pain Time Seen by Provider: 05/31/20 02:48 Source: patient Mode of arrival: Ambulatory Limitations: no limitations History of Present Illness HPI Narrative: 49-year-old male nonsmoker with history of diverticulitis presents with a chief complaint of 2-3 days of right flank and lower abdominal pain. He states he 1st noticed the pain a few days ago and it was in his back and his since wrapped around his right side and now is largely overlying his bladder. He states that on occasion the pain will escalate without any obvious provocation and other times it seems to certainly worsen as a consequence of urination. He states the pain is sharp and stabbing in nature and at its maximum as a 10/10 and currently about a 7/10. He denies any nausea, vomiting or diarrhea. He denies fever or chills. He denies any testicular or scrotal pain and denies any penile discharge. He has had no recent trauma or injuries. He has not taken any medications for pain. He states this feels quite different than the diverticulitis he has had in the past Onset (ago): day(s) Duration: intermittent Location: right flank and abdomen Severity: severe Quality: sharp and stabbing Exacerbating factors: urination Context: new medication Associated symptoms: Reports denies other symptoms Related Data Home Medications Medication Instructions Recorded Confirmed cetirizine 10 mg tablet 10 mg PO DAILY 08/22/17 12/21/18 Adult Low Dose Aspirin 81 mg PO DAILY 12/21/18 12/21/18 Previous Rx's Medication Instructions Recorded amoxicillin-pot clavulanate 1 tab PO BID #20 tab 05/15/19 hydrocodone-acetaminophen [[place]] 1 tab PO Q4-6H PRN #7 tab 05/15/19 ondansetron 4 mg PO Q6H PRN #20 tab 05/15/19 amoxicillin-pot clavulanate 1 tab PO BID #20 tab 05/31/20 [Augmentin] ketorolac 10 mg PO Q6H PRN #14 tab 05/31/20 Allergies Allergy/AdvReac Type Severity Reaction Status Date / Time No Known Drug Allergies Allergy Verified 05/15/19 12:29 Review of Systems Constitutional Constitutional: Denies chills, Denies fatigue, Denies fever(s), Denies frequent falls, Denies lethargy and Denies weakness Eyes Eyes: Denies change in vision, Denies eye discharge, Denies irritation and Denies loss of vision ENT Ears, Nose, Mouth, and Throat: Denies change in voice, Denies dizziness, Denies neck pain, Denies sore throat and Denies throat swelling Cardiovascular Cardiovascular: Denies chest pain, Denies irregular heart rhythm, Denies lightheadedness, Denies palpitations, Denies dyspnea, Denies dyspnea on exertion and Denies orthopnea Respiratory Respiratory: Denies cough, Denies dyspnea, Denies dyspnea on exertion and Denies wheezing Gastrointestinal Gastrointestinal: Denies abdominal pain, Denies change in bowel habits, Denies diarrhea, Denies nausea and Denies vomiting Genitourinary Genitourinary: Reports difficulty urinating, Reports dysuria and Reports flank pain Genitourinary: Reports dysuria and Reports flank pain Musculoskeletal Musculoskeletal: Denies neck pain and Denies numbness Integumentary/Breasts Skin/Breast: Denies pruritus, Denies erythema, Denies rash and Denies wounds Neurologic Neurologic: Denies behavioral changes, Denies confusion, Denies dizziness, Denies frequent falls, Denies loss of vision, Denies numbness and Denies weakness Psychiatric Psychiatric: Denies anxiety, Denies behavioral changes, Denies confusion, Denies depression, Denies homicidal ideation and Denies suicidal ideation Endocrine Endocrine: Denies fatigue, Denies flushing and Denies palpitations Hematologic/Lymphatic Hematologic/Lymphatic: Denies easy bruising Allergic/Immunologic Allergic/Immunologic: Denies urticaria, Denies throat swelling and Denies wheezing Patient History Medical History (Updated 05/31/20 @ 04:04 by Humberto Lazaro DO) Ankle pain (2017) Anxiety (2010) Chicken pox (~1970) Chronic back pain (2017) Chronic headaches (2015) Colon polyps (2017) CTS (carpal tunnel syndrome) (2017) Diverticular disease Foot pain (2014) Fractures (1992) GERD (gastroesophageal reflux disease) (2017) Hearing loss (2017) Hypertension (2017) IBS (irritable bowel syndrome) (2017) Kidney stones Shoulder pain (2012) Sleep apnea (2016) Tinnitus (2017) Vertigo (2017) Surgical History Anesthesia History of hand surgery (1998) History of vasectomy (1991) Status post adenoidectomy (1978) Family History Brother Age: 52 Diabetes mellitus Hypertension Brother Age: 48 Diabetes mellitus Hypertension Father Age: 76 Diabetes mellitus Hypertension Organic cardiac disease High cholesterol Mother Diabetes mellitus Hypertension Sister Age: 53 Diabetes mellitus Hypertension Mental health problem Grandfather Cancer Grandmother Polio Grandfather No problems noted. Grandmother No problems noted. Social History Smoking Status: Never smoker Smoking Status: Never smoker alcohol intake frequency: 0-2 drinks per day Substance Use Type: does not use Exam Narrative Exam Narrative: GENERAL: [49] year old patient appears stated age. Well-nourished, well-developed patient, in mild distress, complaining of pain HEAD: Atraumatic. Normocephalic. EYES: Pupils equal round and reactive. Extraocular motions intact. No scleral icterus. No injection or drainage. ENT: Nose without bleeding, purulent drainage. Throat without erythema, tonsillar hypertrophy or exudate. Airway patent. NECK: Trachea midline. Non tender CARDIOVASCULAR: Regular rate and rhythm without murmurs, gallops, or rubs. RESPIRATORY: Clear to auscultation. Breath sounds equal bilaterally. No wheezes, rales, or rhonchi. GASTROINTESTINAL: Abdomen soft, reproduction of pain with palpation of suprapubic region, nondistended. EXTREMITIES: No edema or joint tenderness. BACK: Nontender without deformity or crepitance. No flank tenderness. NEURO: AOx3. SKIN: No rash or erythema of visible areas Initial Vital Signs Initial Vital Signs: Vital Signs Temperature 97.8 F 05/31/20 02:54 Pulse Rate 85 05/31/20 02:54 Respiratory Rate 18 05/31/20 02:54 Blood Pressure 142/93 H 05/31/20 02:54 Pulse Oximetry 98 05/31/20 02:54 Course Orders Ordered: ED Orders 05/31/20 02:56 CT kidney ureter bladder (KUB) Stat 05/31/20 03:05 Basic Metabolic Panel Stat Complete Blood Count AUTO DIFF Stat Discontinued Medications Amoxicillin/Clavulanate Potassium (Amoxicillin/Clav 875/125 Mg) 1 tab PO NOW ONE Stop: 05/31/20 04:03 Sodium Chloride (Normal Saline 0.9%) 1,000 mls @ 1,000 mls/hr IV BOLUS ONE Stop: 05/31/20 03:48 Last Admin: 05/31/20 03:15 Dose: 1,000 mls/hr Documented by: QING Ketorolac Tromethamine (Ketorolac 60 Mg/2 Ml Vial) 15 mg IV NOW ONE Stop: 05/31/20 02:50 Last Admin: 05/31/20 03:16 Dose: Not Given Documented by: QING Ketorolac Tromethamine (Ketorolac 60 Mg/2 Ml Vial) 15 mg IV NOW ONE Stop: 05/31/20 03:16 Last Admin: 05/31/20 03:15 Dose: 15 mg Documented by: QING Reevaluation(s) Reevaluation #1: Patient has a near complete resolution of symptoms after given Toradol and producing a large volume of urine. Vital Signs Vital signs: Vital Signs - 8 hr 05/31/20 02:54 Temperature 97.8 F Pulse Rate 85 Respiratory Rate 18 Blood Pressure 142/93 H Pulse Oximetry 98 MDM - Male Genitourinary Lab Data Result diagrams: 05/31/20 03:05 05/31/20 03:05 Labs: Lab Results 05/31/20 05/31/20 Range/Units 03:05 03:05 WBC 6.3 (4.5-11.0) X10^3/uL RBC 4.69 (4.5-5.9) X10^6/uL Hgb 14.0 (13.5-17.5) g/dL Hct 41.1 (41-53) % MCV 87.7 (80-100) fL MCH 29.9 (26-34) PG MCHC 34.1 (30-36) % RDW 12.8 (11.6-14.8) % Plt Count 250 (150-400) X10^3/uL Neut % (Auto) 44.0 L (50-75) % Lymph % (Auto) 39.2 (25-40) % [place] % (Auto) 10.7 (3-14) % Eos % (Auto) 4.7 H (2-4) % Baso % (Auto) 1.4 (0-2) % Neut # (Auto) 2800 (2224-5319) /uL Lymph # (Auto) 2500 (6745-0185) /uL [place] # (Auto) 700 (0-900) /uL Eos # (Auto) 300 (0-450) /uL Baso # (Auto) 100 (0-100) /uL Sodium 137 (137-145) mmol/L Potassium 3.7 (3.4-5.1) mmol/L Chloride 104 (98-107) mmol/L Carbon Dioxide 25 (22-32) mmol/L BUN 13 (9-20) mg/dL Creatinine 0.74 (0.66-1.25) mg/dL Estimated GFR > 60.0 (>60) mL/min BUN/Creatinine Ratio 17.6 (6-22) Glucose 114 H (70-100) mg/dL Calcium 9.2 (8.4-10.2) mg/dL Urine Dip Bedside Urine Glucose Negative Bedside Urine Bilirubin - Negative Bedside Urine Ketone - Negative Urine Specific [place] 1.025 Bedside Urine Occult Blood - Negative Bedside Urine pH 6.0 Bedside Urine Protein - Negative Bedside Urine Urobilinogen - Negative Bedside Urine Nitrite - Negative Bedside Urine Leukocytes - Negative Esterase Imaging Data CT scan - abdomen/pelvis: Radiologist's Impression: No kidney stone or urinary tract obstruction. Suspect acute diverticulitis MDM Narrative Medical decision making narrative: Patient with lower abdominal discomfort, pain is well controlled, labs are very reassuring CT shows no evidence of kidney stone or urinary obstruction and suggests early diverticulitis. Patient has no signs of sepsis, tolerates orals and is motivated to go home. He meets no admission criteria. Patient given extensive return precautions and encouraged to follow closely with his primary care provider. He understands and agrees with the diagnosis and plan and has had his questions answered to his apparent satisfaction Discharge Plan Departure Patient Disposition: Home Clinical Impression: Diverticulitis Instructions: DI for Diverticulitis Activity Restrictions/Additional Instructions: *You have been diagnosed with [lower abdominal discomfort due to early, mild diverticulitis and resolved urinary retention] *What to do: *Take medications as directed *Follow up with your primary care provider in 2-3 days, call for an appointment. Let them know you were seen in the Emergency Department and that we ask that you be seen in follow up *Return to ER if you should have any new, worsening or concerning symptoms, such as [increasing pain, fever, shaking chills, persistent vomiting or other bothersome symptoms] Prescriptions: New ketorolac 10 mg tablet 10 mg PO Q6H PRN (Reason: pain) Qty: 14 RF: 0 amoxicillin-pot clavulanate [Augmentin] 875-125 mg tablet 1 tab PO BID Qty: 20 RF: 0 No Action cetirizine [Zyrtec] 10 mg tablet 10 mg PO DAILY RF: 0 Adult Low Dose Aspirin 81 mg 81 mg PO DAILY RF: 0 amoxicillin-pot clavulanate 875-125 mg tablet 1 tab PO BID Qty: 20 RF: 0 ondansetron 4 mg tablet,disintegrating 4 mg PO Q6H PRN (Reason: nausea and vomiting) Qty: 20 RF: 0 hydrocodone-acetaminophen [[place]] 5-325 mg tablet 1 tab PO Q4-6H PRN (Reason: pain) Qty: 7 RF: 0 Referrals: Melanie Hayes ARNP [Primary Care Provider] -
[2020-05-31 03:12] LABS: Add Manual Diff / Slide Review NO; Basophils Absolute Auto 100 /uL (0-100); Basophils Percent Auto 1.4 % (0-2); Eosinophils Absolute Auto 300 /uL (0-450); Eosinophils Percent Auto 4.7 % (2-4); Hematocrit 41.1 % (41-53); Lymphocytes Absolute Auto 2500 /uL (1100-4500); Lymphocytes Percent Auto 39.2 % (25-40); Mean Corpuscular HGB Conc 34.1 % (30-36); Mean Corpuscular Hemoglobin 29.9 PG (26-34); Mean Corpuscular Volume 87.7 fL (80-100); Monocytes Absolute Auto 700 /uL (0-900); Monocytes Percent Auto 10.7 % (3-14); Neutrophils Absolute Auto 2800 /uL (1500-7000); Platelet Count 250 X10^3/uL (150-400); Red Blood Cell Count 4.69 X10^6/uL (4.5-5.9); Red Cell Distribution Width 12.8 % (11.6-14.8); White Blood Cell Count 6.3 X10^3/uL (4.5-11.0)
[2020-05-31] MEDS: SODIUM CHLORIDE 0.9% 1,000 ML 1000 ML IV (03:15)
[2020-05-31] MEDS: KETOROLAC 60 MG/2 ML VIAL 15 MG IV (03:15)
[2020-05-31 03:20] LABS: BUN Creatinine Ratio 17.6 (6-22); Blood Urea Nitrogen 13 mg/dL (9-20); Calcium 9.2 mg/dL (8.4-10.2); Carbon Dioxide 25 mmol/L (22-32); Chloride 104 mmol/L (98-107); Estimated Glomerular Filt Rate > 60.0 mL/min (>60); Glucose 114 mg/dL (70-100); HEMOLYSIS < 15 (0-50); Potassium 3.7 mmol/L (3.4-5.1); Sodium 137 mmol/L (137-145)
--- NOTE | 2020-05-31 03:41 | PC.NURSE ---
Voided 575cc into urinal. PVR 90cc Pt reports feeling so much better after Toradol use
[2020-05-31 04:14] VITALS: BP 126/84; PULSE 70; RESP 16; O2SAT 97
[2020-05-31] MEDS: AMOXICILLIN/CLAV 875/125 MG 1 TAB PO (04:16)
== END 2020-05-31 04:30 | disposition home or self-care (01) ==
PROVIDERS: Emergency Provider Emergency Medicine; PCP Internal Medicine
DX: K57.92 Diverticulitis of intestine, part unspecified, without perforation or abscess without bleeding (principal); R33.9 Retention of urine, unspecified
CPT/HCPCS: 36415; 51798; 74176; 80048; 81003; 85025; 96361; 96374; 99284; 99285; J1885

== ENCOUNTER 2020-08-27 11:31 | Emergency (ER) | payer OTHER, SELFPAY ==
[2020-08-27 11:47] VITALS: BP 160/101; PULSE 99; RESP 14; TEMP 37.2; O2SAT 99
[2020-08-27 12:13] LABS: COVID19 -Nasal RAPID Negative (Negative)
--- NOTE | 2020-08-27 13:34 | ED.URI ---
HPI - URI/Sore Throat General Chief Complaint: Upper Respiratory Symptoms Stated Complaint: sore throat/headache/fever/congestion Time Seen by Provider: 08/27/20 13:34 Source: patient Mode of arrival: Ambulatory Limitations: no limitations History of Present Illness HPI Narrative: This is a 49-year-old male with 24 hours of nasal congestion sinus pressure into the right forehead. Patient states he has had some postnasal drip and nasal drainage. He states he has a mild dry cough after the drainage. He denies any fevers. He felt warm yesterday. He denies any chest pain or shortness of breath otherwise. No nausea or vomiting. No GI or urinary symptoms. No swelling of extremities. Patient states he takes baby aspirin daily, denies any other medical issues. Patient's main concern was being evaluated for COVID. Related Data Home Medications Medication Instructions Recorded Confirmed cetirizine 10 mg tablet (Zyrtec) 10 mg PO DAILY 08/22/17 12/21/18 Adult Low Dose Aspirin 81 mg PO DAILY 12/21/18 12/21/18 Previous Rx's Medication Instructions Recorded amoxicillin 875 mg-potassium 1 tab PO BID #20 tab 05/15/19 clavulanate 125 mg tablet hydrocodone 5 mg-acetaminophen 325 1 tab PO Q4-6H PRN #7 tab 05/15/19 mg tablet ([place]) ondansetron 4 mg disintegrating 4 mg PO Q6H PRN #20 tab 05/15/19 tablet amoxicillin 875 mg-potassium 1 tab PO BID #20 tab 05/31/20 clavulanate 125 mg tablet (Augmentin) ketorolac 10 mg tablet 10 mg PO Q6H PRN #14 tab 05/31/20 Allergies Allergy/AdvReac Type Severity Reaction Status Date / Time No Known Drug Allergies Allergy Verified 05/15/19 12:29 Review of Systems Review of Systems ROS Unobtainable: All systems reviewed & are unremarkable except as noted in HPI and below Patient History Medical History (Updated 08/27/20 @ 14:04 by Katherine Robertson DO) Ankle pain (2016) Anxiety (2010) Chicken pox (~1970) Chronic back pain (2017) Chronic headaches (2015) Colon polyps (2016) CTS (carpal tunnel syndrome) (2016) Diverticular disease Foot pain (2014) Fractures (1992) GERD (gastroesophageal reflux disease) (2017) Hearing loss (2017) Hypertension (2017) IBS (irritable bowel syndrome) (2017) Kidney stones Shoulder pain (2012) Sleep apnea (2016) Tinnitus (2017) Vertigo (2017) Surgical History Anesthesia History of hand surgery (1998) History of vasectomy (1991) Status post adenoidectomy (1978) Family History Brother Age: 52 Diabetes mellitus Hypertension Brother Age: 49 Diabetes mellitus Hypertension Father Age: 76 Diabetes mellitus Hypertension Organic cardiac disease High cholesterol Mother Diabetes mellitus Hypertension Sister Age: 53 Diabetes mellitus Hypertension Mental health problem Grandfather Cancer Grandmother Polio Grandfather No problems noted. Grandmother No problems noted. Social History Smoking Status: Never smoker Smoking Status: Never smoker alcohol intake frequency: 0-2 drinks per day Substance Use Type: does not use Exam Narrative Exam Narrative: GEN: well nourished, well appearing male, alert and oriented x 3, patient appears to be in mild distress. HEENT: Atraumatic, pupils are equal round reactive to light, extraocular movements are intact, nares are clear, TMs are clear with no fluid, there is no conjunctival pallor. Throat is erythematous with cobblestoning without any exudates, mild bilateral tonsillar enlargement , no uvular deviation HEART: Regular rate and rhythm without murmur, clicks, rubs LUNGS:Lungs clear to auscultation, no wheezes, rales, crackles, chest moves symmetrically ABD:bowel sounds normal, soft, non-tender, no guarding, rebound, rigidity, no masses noted, no hepatosplenomegaly MSCL: full range of motion, normal gait NEURO:CN 2-12 intact, sensation normal SKIN: Fresh. No skin changes Initial Vital Signs Initial Vital Signs: Vital Signs Temperature 98.9 F 08/27/20 11:47 Pulse Rate 99 H 08/27/20 11:47 Respiratory Rate 14 08/27/20 11:47 Blood Pressure 160/101 H 08/27/20 11:47 Pulse Oximetry 99 08/27/20 11:47 Course Orders Ordered: ED Orders 08/27/20 11:52 COVID19 -Nasal swab/Pre-Proc Stat Vital Signs Vital signs: Vital Signs - 8 hr 08/27/20 14:23 Pulse Rate 70 Respiratory Rate 14 Blood Pressure 122/78 MDM - URI/Sore Throat Lab Data Labs: Lab Results 08/27/20 Range/Units 11:52 SARS-CoV-2 (PCR) Negative (Negative) Point of Care Testing Rapid Strep A Negative Discharge Plan Departure Patient Disposition: Home Clinical Impression: Upper respiratory infection Instructions: DI for Viral Upper Respiratory Infection -- Adult Activity Restrictions/Additional Instructions: Follow-up if you are not having improvement in 7-10 days. You may take clear tender similar antihistamine daily. COVID swab and strep swab are negative today Please return for fevers, severe headaches, lightheadedness or passing out, persistent vomiting, rapidly worsening swelling of neck or throat, or other new or concerning symptoms. Prescriptions: No Action cetirizine [Zyrtec] 10 mg tablet 10 mg PO DAILY RF: 0 Adult Low Dose Aspirin 81 mg 81 mg PO DAILY RF: 0 amoxicillin-pot clavulanate 875-125 mg tablet 1 tab PO BID Qty: 20 RF: 0 ondansetron 4 mg tablet,disintegrating 4 mg PO Q6H PRN (Reason: nausea and vomiting) Qty: 20 RF: 0 hydrocodone-acetaminophen [[place]] 5-325 mg tablet 1 tab PO Q4-6H PRN (Reason: pain) Qty: 7 RF: 0 ketorolac 10 mg tablet 10 mg PO Q6H PRN (Reason: pain) Qty: 14 RF: 0 amoxicillin-pot clavulanate [Augment[place]] 875-125 mg tablet 1 tab PO BID Qty: 20 RF: 0 Referrals: Melanie Hayes ARNP [Primary Care Provider] -
[2020-08-27 14:23] VITALS: BP 122/78; PULSE 70; RESP 14
== END 2020-08-27 14:24 | disposition home or self-care (01) ==
PROVIDERS: Emergency Provider Emergency Medicine; PCP Internal Medicine
DX: J06.9 Acute upper respiratory infection, unspecified (principal); Z20.822 Contact with and (suspected) exposure to COVID-19
CPT/HCPCS: 87635; 87880; 99282; C9803

== ENCOUNTER → 2021-08-08 14:02 | Outpatient (CLI) | payer OTHER, SELFPAY | PROVIDERS: PCP Internal Medicine; Referring Provider Internal Medicine; Visit Provider Internal Medicine | DX: R42 Dizziness and giddiness (principal); Z53.20 Procedure and treatment not carried out because of patient's decision for unspecified reasons ==

== ENCOUNTER 2023-05-16 08:33 | Emergency (ER) | payer OTHER, SELFPAY ==
[2023-05-16 08:44] VITALS: BP 149/101; PULSE 69; RESP 16; TEMP 36.9; O2SAT 95; BMI 32.5
--- NOTE | 2023-05-16 08:56 | ED_ITS ---
HPI - Nausea/Vomiting/Diarrhea General Chief complaint: Nausea/Vomiting/Diarrhea Stated complaint: nausea, diaherrea Time Seen by Provider: 05/16/23 08:48 History of Present Illness HPI Narrative: 52-year-old gentleman with no significant medical history presents with 48 hours of nausea vomiting and diarrhea. No significant chills or myalgias. He notes that his 2 grandchildren had similar findings in both seemed to have improved. When he had another episode of diarrhea with vomiting this morning he decided it was time to come in for further evaluation. He has not having chest pain, palpitations, headache. Little bit dizzy when he stands up and some mild diffuse abdominal tenderness. There is no blood in the emesis or the stool Related Data Home Medications Medication Instructions Recorded Confirmed cetirizine 10 mg tablet (Zyrtec) 10 mg PO DAILY 08/22/17 12/21/18 Adult Low Dose Aspirin 81 mg PO DAILY 12/21/18 12/21/18 Previous Rx's Medication Instructions Recorded amoxicillin 875 mg-potassium 1 tab PO BID #20 tabs 05/15/19 clavulanate 125 mg tablet hydrocodone 5 mg-acetaminophen 325 1 tab PO Q4-6H PRN pain #7 tabs 05/15/19 mg tablet ([place]) ondansetron 4 mg disintegrating 4 mg PO Q6H PRN nausea and 05/15/19 tablet vomiting #20 tabs amoxicillin 875 mg-potassium 1 tab PO BID #20 tabs 05/31/20 clavulanate 125 mg tablet (Augmentin) ketorolac 10 mg tablet 10 mg PO Q6H PRN pain #14 tabs 05/31/20 Allergies Allergy/AdvReac Type Severity Reaction Status Date / Time No Known Drug Allergies Allergy Verified 05/15/19 12:29 Review of Systems Review of Systems Narrative: Pertinent positive and negative findings as per HPI Patient History Medical History (Updated 05/16/23 @ 11:11 by Steph Roas MD) Anxiety (2010) Chronic headaches (2015) Sleep apnea (2016) Kidney stones Foot pain (2015) Ankle pain (2017) Diverticular disease Shoulder pain (2012) Hypertension (2017) Colon polyps (2017) GERD (gastroesophageal reflux disease) (2017) IBS (irritable bowel syndrome) (2017) Hearing loss (2017) Tinnitus (2017) Vertigo (2017) Chicken pox (~1970) CTS (carpal tunnel syndrome) (2017) Chronic back pain (2017) Fractures (1992) Surgical History Anesthesia History of hand surgery (1998) History of vasectomy (1991) Status post adenoidectomy (1978) Family History Brother Age: 55 Diabetes mellitus Hypertension Brother Age: 51 Diabetes mellitus Hypertension Father Age: 79 Diabetes mellitus Hypertension Organic cardiac disease High cholesterol Mother Diabetes mellitus Hypertension Sister Age: 56 Diabetes mellitus Hypertension Mental health problem Grandfather Cancer Grandmother Polio Grandfather No problems noted. Grandmother No problems noted. Social History Smoking Status: Never smoker Smoking Status: Never smoker alcohol intake frequency: 0-2 drinks per day Substance Use Type: does not use Exam Initial Vital Signs Initial Vital Signs: Vital Signs Temperature 98.4 F 05/16/23 08:44 Pulse Rate 69 05/16/23 08:44 Respiratory Rate 16 05/16/23 08:44 Blood Pressure 149/101 H 05/16/23 08:44 Pulse Oximetry 95 05/16/23 08:44 Oxygen Delivery Method Room Air 05/16/23 08:44 General: Healthy appearing, in no acute distress. Able to give a complete and coherent history. Well-nourished well-developed HEENT: Moist mucous membranes, normal sclera with reactive pupils, Neck: No JVD, supple Respiratory: Lungs are clear to auscultation, no wheezing no rales no rhonchi. Full and symmetrical air movement Cardiac: Regular rate and rhythm no murmurs no bruits Abdomen: Soft, mild abdominal tenderness without rebound or guarding no flank pain Skin: Warm and dry, no rashes, well perfused Neurologic: Grossly neurologically intact with no obvious asymmetries or abnormalities Extremities: No trauma, well perfused Psych: Cooperative, appropriate insight and affect Course Orders Ordered: ED Orders 05/16/23 09:22 Complete Blood Count AUTO DIFF Stat Comprehensive Metabolic Panel Stat Lipase Stat Magnesium Stat Discontinued Medications Sodium Chloride (Normal Saline 0.9%) 1,000 mls @ 1,000 mls/hr IV BOLUS ONE Stop: 05/16/23 09:59 Last Admin: 05/16/23 09:28 Dose: 1,000 mls/hr Documented By: RAMBO Ondansetron HCl (Ondansetron 4 Mg/2 Ml Inj) 4 mg IV NOW ONE Stop: 05/16/23 09:01 Last Admin: 05/16/23 09:28 Dose: 4 mg Documented By: RAMBO Vital Signs Vital signs: Vital Signs - 8 hr 05/16/23 08:44 Temperature 98.4 F Pulse Rate 69 Respiratory Rate 16 Blood Pressure 149/101 H Pulse Oximetry 95 Oxygen Delivery Method Room Air MDM - Nausea/Vomiting/Diarrhea Lab Data 05/16/23 09:22 05/16/23 09:22 Labs: Lab Results 05/16/23 Range/Units 09:22 WBC 5.8 (4.5-11.0) X10^3/uL RBC 4.81 (4.5-5.9) X10^6/uL Hgb 14.5 (13.5-17.5) g/dL Hct 42.1 (41-53) % MCV 87.6 (80-100) fL MCH 30.2 (26-34) PG MCHC 34.4 (30-36) % RDW 13.1 (11.6-14.8) % Plt Count 238 (150-400) X10^3/uL Neut % (Auto) 54.8 (50-75) % Lymph % (Auto) 26.9 (25-40) % [place] % (Auto) 12.0 (3-14) % Eos % (Auto) 5.5 H (2-4) % Baso % (Auto) 0.8 (0-2) % Neut # (Auto) 3200 (9698-3647) /uL Lymph # (Auto) 1600 (7071-7444) /uL [place] # (Auto) 700 (0-900) /uL Eos # (Auto) 300 (0-450) /uL Baso # (Auto) 0 (0-100) /uL Sodium 137 (137-145) mmol/L Potassium 4.5 (3.4-5.1) mmol/L Chloride 105 (98-107) mmol/L Carbon Dioxide 25 (22-32) mmol/L BUN 15 (9-20) mg/dL Creatinine 0.81 (0.66-1.25) mg/dL Estimated GFR > 60 (>60) mL/min BUN/Creatinine Ratio 18.5 (6-22) Glucose 107 H (70-100) mg/dL Calcium 9.2 (8.4-10.2) mg/dL Magnesium 2.0 (1.6-2.3) mg/dL Total Bilirubin 1.1 (0.2-1.3) mg/dL AST 36 (17-59) IU/L ALT 25 (<50) IU/L Alkaline Phosphatase 65 (38-126) U/L Total Protein 7.9 (6.3-8.2) g/dL Albumin 4.5 (3.5-5.0) g/dL Globulin 3.4 (1.7-4.1) g/dL Albumin/Globulin Ratio 1.3 (1.0-2.8) Lipase 73 (23-300) U/L MDM Narrative Medical decision making narrative: CC: Vomiting and diarrhea for 48 hours Complicating co-morbidities: Exposed to grandchildren with similar symptoms Data collected from: patient Differential considered: Viral syndrome, food poisoning, bacterial enteritis Exam documented above, pertinent findings include: Exam is essentially benign, mild abdominal tenderness without surgical abdomen Lab Test results independently reviewed as above. Pertinent findings: CBC is unremarkable with no leukocytosis or anemia Chemistries are reassuring. No renal failure, no significant electrolyte abnormalities Lipase is unremarkable Treatments: Fluids, Zofran Re-evaluations: Patient is re-evaluated in his feeling significantly improve. With shared decision-making we opted to not send a stool sample as it would not change recommendations for treatment Discussion: 52-year-old gentleman with nausea vomiting and diarrhea. Currently 2-1/2 days feels significantly better after fluids and Zofran. Does not feel that he needs any Zofran at home. He is still able to eat and drink. There was no evidence of significant dehydration, electrolyte abnormality, liver or hepatic dysfunction and this point he is safe for home discharge. Questions are answered Discharge Plan Departure Patient Disposition: Home Clinical Impression: Nausea vomiting and diarrhea Instructions: DI for Viral Gastroenteritis -- Adult Activity Restrictions/Additional Instructions: Thank you for coming in today Your lab work was very reassuring. There was no evidence of dehydration, significant bacterial infection, kidney problems or electrolyte abnormalities. You are given 1 L of normal saline along with Zofran, an anti nausea medication. And whether you are feeling better Please make sure that you are continuing to eat and drink. I suspect you will likely still have some diarrhea for another day or so but it should continue to improve If you find that you are getting worse or develop any new symptoms, please feel free to return to the emergency department for further evaluation. Prescriptions: No Action cetirizine [Zyrtec] 10 mg tablet 10 mg PO DAILY Adult Low Dose Aspirin 81 mg 81 mg PO DAILY amoxicillin-pot clavulanate 875-125 mg tablet 1 tab PO BID Qty: 20 0RF ondansetron 4 mg tablet,disintegrating 4 mg PO Q6H PRN (Reason: nausea and vomiting) Qty: 20 0RF hydrocodone-acetaminophen [[place]] 5-325 mg tablet 1 tab PO Q4-6H PRN (Reason: pain) Qty: 7 0RF ketorolac 10 mg tablet 10 mg PO Q6H PRN (Reason: pain) Qty: 14 0RF amoxicillin-pot clavulanate [Augmentin] 875-125 mg tablet 1 tab PO BID Qty: 20 0RF Referrals: Melanie Hayes ARNP [Primary Care Provider] - Stand Alone Forms: Patient Portal/API
[2023-05-16] MEDS: ONDANSETRON 4 MG/2 ML INJ IV (09:28)
[2023-05-16] MEDS: SODIUM CHLORIDE 0.9% 1,000 ML 1000 ML IV (09:28)
[2023-05-16 09:34] LABS: Add Manual Diff / Slide Review NO; Basophils Absolute Auto 0 /uL (0-100); Basophils Percent Auto 0.8 % (0-2); Eosinophils Absolute Auto 300 /uL (0-450); Eosinophils Percent Auto 5.5 % (2-4); Hematocrit 42.1 % (41-53); Hemoglobin 14.5 g/dL (13.5-17.5); Lymphocytes Absolute Auto 1600 /uL (1100-4500); Lymphocytes Percent Auto 26.9 % (25-40); Mean Corpuscular HGB Conc 34.4 % (30-36); Mean Corpuscular Hemoglobin 30.2 PG (26-34); Mean Corpuscular Volume 87.6 fL (80-100); Monocytes Absolute Auto 700 /uL (0-900); Neutrophils Absolute Auto 3200 /uL (1500-7000); Neutrophils Percent Auto 54.8 % (50-75); Platelet Count 238 X10^3/uL (150-400); Red Blood Cell Count 4.81 X10^6/uL (4.5-5.9); Red Cell Distribution Width 13.1 % (11.6-14.8); White Blood Cell Count 5.8 X10^3/uL (4.5-11.0)
[2023-05-16 09:49] LABS: Alanine Aminotransferase 25 IU/L (<50); Albumin 4.5 g/dL (3.5-5.0); Albumin Globulin Ratio 1.3 (1.0-2.8); Alkaline Phosphatase 65 U/L (38-126); Aspartate Aminotransferase 36 IU/L (17-59); BUN Creatinine Ratio 18.5 (6-22); Bilirubin Total 1.1 mg/dL (0.2-1.3); Blood Urea Nitrogen 15 mg/dL (9-20); Calcium 9.2 mg/dL (8.4-10.2); Carbon Dioxide 25 mmol/L (22-32); Chloride 105 mmol/L (98-107); Estimated Glomerular Filt Rate > 60 mL/min (>60); Globulin 3.4 g/dL (1.7-4.1); Glucose 107 mg/dL (70-100); HEMOLYSIS < 15 (0-50); Lipase 73 U/L (23-300); Potassium 4.5 mmol/L (3.4-5.1); Sodium 137 mmol/L (137-145); Total Protein 7.9 g/dL (6.3-8.2)
[2023-05-16 11:18] VITALS: BP 133/82; PULSE 78; O2SAT 97
== END 2023-05-16 11:18 | disposition home or self-care (01) ==
PROVIDERS: Emergency Provider Emergency Medicine; PCP Internal Medicine
DX: R11.2 Nausea with vomiting, unspecified (principal); R19.7 Diarrhea, unspecified
CPT/HCPCS: 36415; 80053; 83690; 83735; 85025; 96374; 99284; J2405

== ENCOUNTER 2023-10-23 10:50 | Emergency (ER) | payer OTHER, SELFPAY ==
[2023-10-23] VITALS (8 sets, daily range): BP systolic 114–132; BP diastolic 71–91; PULSE 68–82; RESP 17–23; TEMP 36.8; O2SAT 95–98; BMI 32.5
--- NOTE | 2023-10-23 10:59 | ED.CHESTPAIN ---
HPI - Chest Pain General Chief Complaint: Chest Pain Stated Complaint: chest pain Time Seen by Provider: 10/23/23 10:56 History of Present Illness HPI narrative: 52-year-old male with no known history of coronary artery disease, has history of remote minimal smoking none for the last 15 years, history of hypertension, history of hyperlipidemia, no prior cardiac stress testing, complains of 2 days intermittent left lateral dull achy chest pain. Short events of chest pain, not associated with nausea or diaphoresis, not reproduced with changes in truncal or arm movements, not better or worse with upright versus supine positioning, not increased or brought on with deep breathing. Nonradiating, no pain in left arm, right arm, back, scapula, jaw, legs. He takes baby aspirin daily, no other blood thinner medications. He denies any cough shortness of breath fevers or chills. He denies any history of blood clots to legs or lungs, no leg or arm pain or swelling symptoms. No injury or trauma recent. No new activities or lifting. Related Data Home Medications Medication Instructions Recorded Confirmed cetirizine 10 mg tablet (Zyrtec) 10 mg PO DAILY 08/22/17 12/21/18 Adult Low Dose Aspirin 81 mg PO DAILY 12/21/18 12/21/18 Previous Rx's Medication Instructions Recorded amoxicillin 875 mg-potassium 1 tab PO BID #20 tabs 05/15/19 clavulanate 125 mg tablet hydrocodone 5 mg-acetaminophen 325 1 tab PO Q4-6H PRN pain #7 tabs 05/15/19 mg tablet ([place]) ondansetron 4 mg disintegrating 4 mg PO Q6H PRN nausea and 05/15/19 tablet vomiting #20 tabs amoxicillin 875 mg-potassium 1 tab PO BID #20 tabs 05/31/20 clavulanate 125 mg tablet (Augmentin) ketorolac 10 mg tablet 10 mg PO Q6H PRN pain #14 tabs 05/31/20 Allergies Allergy/AdvReac Type Severity Reaction Status Date / Time No Known Drug Allergies Allergy Verified 05/15/19 12:29 Review of Systems Review of Systems Narrative: see HPI Patient History Medical History (Updated 10/23/23 @ 11:23 by Chito Monreal MD) Anxiety (2009) Chronic headaches (2014) Sleep apnea (2015) Kidney stones Foot pain (2015) Ankle pain (2017) Diverticular disease Shoulder pain (2012) Hypertension (2017) Colon polyps (2017) GERD (gastroesophageal reflux disease) (2017) IBS (irritable bowel syndrome) (2017) Hearing loss (2017) Tinnitus (2017) Vertigo (2017) Chicken pox (~1970) CTS (carpal tunnel syndrome) (2017) Chronic back pain (2017) Fractures (1992) Surgical History Anesthesia History of hand surgery (1998) History of vasectomy (1991) Status post adenoidectomy (1978) Family History Brother Age: 55 Diabetes mellitus Hypertension Brother Age: 52 Diabetes mellitus Hypertension Father Age: 79 Diabetes mellitus Hypertension Organic cardiac disease High cholesterol Mother Diabetes mellitus Hypertension Sister Age: 56 Diabetes mellitus Hypertension Mental health problem Grandfather Cancer Grandmother Polio Grandfather No problems noted. Grandmother No problems noted. Social History Smoking Status: Never smoker Smoking Status: Never smoker alcohol intake frequency: 0-2 drinks per day Substance Use Type: does not use Exam Narrative Exam Narrative: GENERAL: Well-developed patient, in mild distress. HEAD: Atraumatic. Normocephalic. EYES: Pupils equal round and reactive. Extraocular motions intact. No scleral icterus. No injection or drainage. ENT: Nose without bleeding, purulent drainage. Throat without erythema, tonsillar hypertrophy or exudate. Airway patent. NECK: Trachea midline. Non tender CARDIOVASCULAR: Regular rate and rhythm without murmurs, gallops, or rubs. RESPIRATORY: Clear to auscultation. Breath sounds equal bilaterally. No wheezes, rales, or rhonchi. GASTROINTESTINAL: Abdomen soft, non-tender, nondistended. EXTREMITIES: No edema or joint tenderness. BACK: Nontender without deformity or crepitance. No flank tenderness. NEURO: AOx3. Nonfocal neuro exam SKIN: No rash or erythema of visible areas Initial Vital Signs Initial Vital Signs: Vital Signs Temperature 98.3 F 10/23/23 11:03 Pulse Rate 71 10/23/23 11:03 Respiratory Rate 18 10/23/23 11:03 Blood Pressure 120/91 H 10/23/23 11:03 Pulse Oximetry 98 10/23/23 11:03 Oxygen Delivery Method Room Air 10/23/23 11:03 Course Orders Ordered: ED Orders 10/23/23 11:02 XR chest 1V Stat EKG-12 Lead Stat 10/23/23 11:07 Complete Blood Count AUTO DIFF Stat Comprehensive Metabolic Panel Stat Lipase Stat Magnesium Stat NT-proBNP (BNP-Adult 18+) Stat PTT Partial Thromboplastin Geremias Stat Prothrombin Time INR Stat Troponin & CK Cardiac Panel Stat 10/23/23 13:04 Troponin I Stat Discontinued Medications Aspirin (Aspirin 81 Mg Chew Tab) 324 mg PO NOW ONE Stop: 10/23/23 11:03 Last Admin: 10/23/23 11:20 Dose: Not Given Documented By: CASEY Vital Signs Vital signs: Vital Signs - 8 hr 10/23/23 11:03 10/23/23 11:11 10/23/23 11:30 Temperature 98.3 F Pulse Rate 71 77 Respiratory Rate 18 Blood Pressure 120/91 H 132/80 Pulse Oximetry 98 96 Oxygen Delivery Method Room Air 10/23/23 11:30 10/23/23 12:00 10/23/23 12:00 Temperature Pulse Rate 68 69 Respiratory Rate 17 20 Blood Pressure 129/85 Pulse Oximetry 95 96 Oxygen Delivery Method Room Air 10/23/23 12:30 10/23/23 12:43 10/23/23 12:43 Temperature Pulse Rate 82 72 Respiratory Rate 23 19 Blood Pressure 115/74 Pulse Oximetry 97 96 Oxygen Delivery Method 10/23/23 13:00 10/23/23 13:00 10/23/23 13:30 Temperature Pulse Rate 75 Respiratory Rate 18 Blood Pressure 117/74 114/71 Pulse Oximetry 97 Oxygen Delivery Method 10/23/23 13:30 Temperature Pulse Rate 72 Respiratory Rate 18 Blood Pressure Pulse Oximetry 96 Oxygen Delivery Method MDM - Chest Pain Lab Data Attestation: I reviewed the patient's lab results. 10/23/23 11:07 10/23/23 11:07 Labs: Lab Results 10/23/23 10/23/23 Range/Units 11:07 13:04 WBC 7.2 (4.5-11.0) X10^3/uL RBC 4.71 (4.5-5.9) X10^6/uL Hgb 14.4 (13.5-17.5) g/dL Hct 41.1 (41-53) % MCV 87.3 (80-100) fL MCH 30.7 (26-34) PG MCHC 35.1 (30-36) % RDW 12.4 (11.6-14.8) % Plt Count 267 (150-400) X10^3/uL Neut % (Auto) 52.6 (50-75) % Lymph % (Auto) 34.4 (25-40) % [place] % (Auto) 8.3 (3-14) % Eos % (Auto) 3.7 (2-4) % Baso % (Auto) 1.0 (0-2) % Neut # (Auto) 3800 (8833-4412) /uL Lymph # (Auto) 2500 (5094-5509) /uL [place] # (Auto) 600 (0-900) /uL Eos # (Auto) 300 (0-450) /uL Baso # (Auto) 100 (0-100) /uL PT 11.4 (9.4-12.5) SECONDS INR 1.0 (0.9-1.3) APTT 33 (25.1-36.5) SECONDS Sodium 135 L (137-145) mmol/L Potassium 4.6 (3.4-5.1) mmol/L Chloride 103 (98-107) mmol/L Carbon Dioxide 21 L (22-32) mmol/L BUN 12 (9-20) mg/dL Creatinine 0.81 (0.66-1.25) mg/dL Estimated GFR > 60 (>60) mL/min BUN/Creatinine Ratio 14.8 (6-22) Glucose 104 H (70-100) mg/dL Calcium 9.6 (8.4-10.2) mg/dL Magnesium 2.1 (1.6-2.3) mg/dL Total Bilirubin 0.8 (0.2-1.3) mg/dL AST 41 (17-59) IU/L ALT 34 (<50) IU/L Alkaline Phosphatase 64 (38-126) U/L Total Creatine Kinase 70 (55-170) U/L Troponin I < 0.012 < 0.012 (0.01-0.034) ng/mL NT-Pro-B Natriuret Pep < 20 (<125) pg/mL Total Protein 7.7 (6.3-8.2) g/dL Albumin 4.7 (3.5-5.0) g/dL Globulin 3.0 (1.7-4.1) g/dL Albumin/Globulin Ratio 1.6 (1.0-2.8) Lipase 98 (23-300) U/L Imaging Data Chest x-ray: Radiologist's Impression: [address] [address] XRay Report Signed Patient: Joaquín Holland MR#: [id number] : 1970 Acct:[id number] Age/Sex: 52 / M Date of Service: 10/23/23 Loc: ED Accession Number: [id number] Procedure: XR chest 1V Ordering Provider: Chito Monreal MD PROCEDURE: XR CHEST 1V INDICATIONS: chest pain TECHNIQUE: One view of the chest was acquired. COMPARISON: None. FINDINGS: Surgical changes and devices: None. Lungs and pleura: Lungs are clear. No pleural effusions or pneumothorax. Mediastinum: Mediastinal contours appear normal. Heart size is normal. Bones and chest wall: No suspicious bony lesions. Overlying soft tissues appear unremarkable. IMPRESSION: No acute cardiopulmonary abnormality is seen. Dictated by: Sada Morales MD, PhD on 10/23/2023 at 11:30 Approved by: Sada Morales MD, PhD on 10/23/2023 at 11:30 ECG Data Attestation: I personally reviewed and interpreted this ECG as follows: Interpretation: Normal sinus rhythm with rate of 71, no obvious ST segment elevation or depression changes. T-wave flattening in lead 3. [facility] Narrative Medical decision making narrative: 52-year-old male has intermittent left lateral chest pain for the last 2 days, currently present but he rates it less than 1/10, declines any additional aspirin or morphine or nitroglycerin therapies. Screening EKG without obvious ischemic changes. DDx consider ACS, musculoskeletal, pneumonia, pulmonary embolus, pleural effusion, referred from subdiaphragmatic process, pleurisy, early zoster, other. Chest x-ray and labs pending. Declined dose of additional aspirin. Denied dose of any other pain medications or nitroglycerin. Initial troponin negative, chest x-ray negative. Await interval troponin. Repeat troponin also negative. Further workup as an outpatient. Patient given contact information for local customer operations representative on-call. Return precautions discussed. Home with family. Critical Care Time Critical Care Time Critical Care Time: Yes Total Critical Care Time: 31 Attestation: The high probability of a clinically significant, sudden or life threatening deterioration of the [cardiopulmonary,] system(s) required my full and direct attention, intervention and personal management. The aggregate critical care time was [31] minutes. This time is in addition to time spent performing reported procedures but includes the following: [x] Data Review and interpretation [x] Patient assessment and monitoring of vital signs [x] Documentation [x] Medication orders and management Discharge Plan Departure Patient Disposition: Home Clinical Impression: Chest pain Activity Restrictions/Additional Instructions: Intermittent left lateral chest pain for the last couple of days, no known coronary artery disease, screening EKG and serial blood tests not suggestive of heart attack at this time. Chest x-ray negative. Other blood tests unremarkable. You do have some cardiac risk factors such as hypertension and hyperlipidemia (cholesterol) and remote smoking, it might be reasonable to have cardiac stress testing in follow up as an outpatient. Continue to take aspirin daily. Follow up with your regular provider to discuss further testing as an outpatient. Contact information for local customer operations representative that was on-call today also provided, though your primary care provider might be more comfortable working with a different customer operations representative. Return earlier to this/nearest emergency department for any change worsening symptoms or any concerns prior Prescriptions: No Action cetirizine [Zyrtec] 10 mg tablet 10 mg PO DAILY Adult Low Dose Aspirin 81 mg 81 mg PO DAILY amoxicillin-pot clavulanate 875-125 mg tablet 1 tab PO BID Qty: 20 0RF ondansetron 4 mg tablet,disintegrating 4 mg PO Q6H PRN (Reason: nausea and vomiting) Qty: 20 0RF hydrocodone-acetaminophen [[place]] 5-325 mg tablet 1 tab PO Q4-6H PRN (Reason: pain) Qty: 7 0RF ketorolac 10 mg tablet 10 mg PO Q6H PRN (Reason: pain) Qty: 14 0RF amoxicillin-pot clavulanate [Augmentin] 875-125 mg tablet 1 tab PO BID Qty: 20 0RF Referrals: Vandana Booth MD [Physician] - Melanie Hayes ARNP [Primary Care Provider] - Stand Alone Forms: Patient Portal/API
--- NOTE | 2023-10-23 11:02 | EKG_ITS ---
[address] [address] Test Date: 2023-10-23 Pat Name: Joaquín Holland Department: Room: Gender: Male [employer] Winder: WON : 1970 Requested By: Order Number: [id number] Reading MD: Max Verma Measurements Intervals [place] Rate: 71 P: 41 OK: 132 QRS: 33 QRSD: 94 T: 32 QT: 396 QTc: 430 Interpretive Statements Normal sinus rhythm Electronically Signed On 10-23-2023 18:54:27 PDT by Max Verma
--- NOTE | 2023-10-23 11:02 | DI.RAD.S_ITS ---
PROCEDURE: XR CHEST 1V INDICATIONS: chest pain TECHNIQUE: One view of the chest was acquired. COMPARISON: None. FINDINGS: Surgical changes and devices: None. Lungs and pleura: Lungs are clear. No pleural effusions or pneumothorax. Mediastinum: Mediastinal contours appear normal. Heart size is normal. Bones and chest wall: No suspicious bony lesions. Overlying soft tissues appear unremarkable. IMPRESSION: No acute cardiopulmonary abnormality is seen. Dictated by: Sada Morales MD, PhD on 10/23/2023 at 11:30 Approved by: Sada Morales MD, PhD on 10/23/2023 at 11:30
[2023-10-23 11:20] LABS: Add Manual Diff / Slide Review NO; Basophils Absolute Auto 100 /uL (0-100); Eosinophils Absolute Auto 300 /uL (0-450); Eosinophils Percent Auto 3.7 % (2-4); Hematocrit 41.1 % (41-53); Hemoglobin 14.4 g/dL (13.5-17.5); Lymphocytes Absolute Auto 2500 /uL (1100-4500); Lymphocytes Percent Auto 34.4 % (25-40); Mean Corpuscular HGB Conc 35.1 % (30-36); Mean Corpuscular Hemoglobin 30.7 PG (26-34); Mean Corpuscular Volume 87.3 fL (80-100); Monocytes Absolute Auto 600 /uL (0-900); Monocytes Percent Auto 8.3 % (3-14); Neutrophils Absolute Auto 3800 /uL (1500-7000); Neutrophils Percent Auto 52.6 % (50-75); Platelet Count 267 X10^3/uL (150-400); Red Blood Cell Count 4.71 X10^6/uL (4.5-5.9); Red Cell Distribution Width 12.4 % (11.6-14.8); White Blood Cell Count 7.2 X10^3/uL (4.5-11.0)
[2023-10-23 11:25] LABS: Prothrombin Time 11.4 SECONDS (9.4-12.5)
[2023-10-23 11:27] LABS: Alanine Aminotransferase 34 IU/L (<50); Albumin 4.7 g/dL (3.5-5.0); Albumin Globulin Ratio 1.6 (1.0-2.8); Alkaline Phosphatase 64 U/L (38-126); Aspartate Aminotransferase 41 IU/L (17-59); BUN Creatinine Ratio 14.8 (6-22); Bilirubin Total 0.8 mg/dL (0.2-1.3); Blood Urea Nitrogen 12 mg/dL (9-20); Calcium 9.6 mg/dL (8.4-10.2); Carbon Dioxide 21 mmol/L (22-32); Chloride 103 mmol/L (98-107); Creatine Kinase 70 U/L (55-170); Estimated Glomerular Filt Rate > 60 mL/min (>60); Glucose 104 mg/dL (70-100); HEMOLYSIS < 15 (0-50); Lipase 98 U/L (23-300); Magnesium 2.1 mg/dL (1.6-2.3); PTT Partial Thromboplastin Tim 33 SECONDS (25.1-36.5); Potassium 4.6 mmol/L (3.4-5.1); Sodium 135 mmol/L (137-145); Total Protein 7.7 g/dL (6.3-8.2)
[2023-10-23 11:38] LABS: NT-proBNP (BNP-Adult 18+) < 20 pg/mL (<125); Troponin I < 0.012 ng/mL (0.01-0.034)
[2023-10-23 13:36] LABS: Troponin I < 0.012 ng/mL (0.01-0.034)
== END 2023-10-23 14:00 | disposition home or self-care (01) ==
PROVIDERS: Emergency Provider Emergency Medicine; PCP Internal Medicine
DX: R07.9 Chest pain, unspecified (principal); I10 Essential (primary) hypertension; Z87.891 Personal history of nicotine dependence; E78.5 Hyperlipidemia, unspecified
CPT/HCPCS: 36415; 71045; 80053; 82550; 83690; 83735; 83880; 84484; 85025; 85610; 85730; 93005; 99283; 99284